=== PATIENT | female | born 1980 | race African-American/Black ===

== ENCOUNTER 2020-08-04 19:45 | Emergency (ER) | payer OTHER, SELFPAY ==
[2020-08-04 20:47] VITALS: BP 126/80; PULSE 80; RESP 16; TEMP 37.4; O2SAT 100; BMI 34.3
--- NOTE | 2020-08-04 21:34 | ED.NECK ---
HPI - Neck Pain/Injury General Chief Complaint: Neck Pain/Injury Stated Complaint: neck and back pain Time Seen by Provider: 08/04/20 21:34 Source: patient Mode of arrival: ambulatory Limitations: no limitations History of Present Illness MD complaint: neck pain and upper back pain Onset (ago): day(s) (2) Place: home Radiation: upper back (left back and left neck along muscle band) Severity: moderate Quality: aching Duration: constant Relieving factors: none Exacerbating factors: movement of extremity and movement of neck Associated symptoms: none Treatments prior to arrival: other (had leftover lidocaine patch) Related Data Previous Rx's Medication Instructions Recorded diazepam [Valium] 5 mg PO TID PRN #10 tab 08/04/20 Allergies Allergy/AdvReac Type Severity Reaction Status Date / Time metoclopramide [From REGLAN] Allergy Severe ALL OVER Unverified 06/25/20 17:28 BODY SWELLING tramadol [TRAMADOL] Allergy Mild PALPATATION Unverified 06/25/20 17:28 S ibuprofen [IBUPROFEN] Allergy Unknown VOMITING/ABD Unverified 06/25/20 17:28 PAIN prochlorperazine Allergy Unknown ? Unverified 06/25/20 17:28 [From COMPAZINE] TACHYCARDIA PT IS UNSURE Review of Systems Review of Systems: Constitutional : No Weight loss, No Fever, No Chills, ENT/Mouth : No Hearing loss, No Ear Pain, No Nasal Congestion, No Sinus Pain, No Hoarseness, No sore throat, No Rhinorrhea, No Swallowing Difficulty Cardiovascular : No Chest Pain, No SOB Respiratory : No Cough, No Dyspnea Gastrointestinal : No Nausea, No Vomiting, No Diarrhea, No abdominal Pain, No Hematochezia, No Melena Genitourinary : No Dysuria, No Urinary Frequency, No Hematuria, No Urinary Incontinence, Musculoskeletal : positive back pain Skin : No Skin Lesions, No rash Neuro : No Weakness, No Numbness, No Paresthesias, no loss of bowel or bladder incontinence, no saddle anesthesia PMFSH Past Medical History Medical History Seizures Surgical History Tubal ligation status Social History Social History (Updated 08/04/20 @ 21:38 by Aniya Cardale, DO) Alcohol intake: never Use of substances other than those prescribed or required for medical reasons: No Advance Directives: No Advance Directives Information Provided: Yes Physical Exam Vital Signs: Vital Signs: Vital Signs Temp Pulse Resp BP Pulse Ox 08/04/20 20:47 99.3 F 80 16 126/80 100 Body Mass Index 34.3 Appearance: Alert. Oriented X3. No acute distress. Eyes: Pupils equal, round and reactive to light. ENT: Pharynx normal. Neck: Normal inspection. Neck supple. CVS: Normal heart rate and rhythm. Pulses normal. Respiratory: No respiratory distress. Breath sounds normal. Abdomen: Soft and nontender. Back: ttp along L paraspinal band from lower thoracic to cervical no rash Skin: Skin warm and dry. Normal skin color. Normal skin turgor. Extremities: No lower extremity edema. No calf ttp Neuro: Oriented X 3. No motor deficit. No sensory deficit. MDM - Neck Pain/Injury MDM Narrative Medical decision making narrative: 39 yo female here with L sided back pain up and down from thoracic to cervical no b/b incontinence, no saddle anesthesia, no IVDA, no AC therapy, not toxic, seems MSK in nature, dispo per results and findings, order of valium for MSK relaxation Lab Data Labs: Lab Results 08/04/20 Range/Units 21:44 Urine Color YELLOW Urine Appearance CLEAR Urine pH 7.5 (5.0-8.0) Ur Specific [place] >= 1.030 H (1.005-1.025) Urine Protein NEG (NEG-TRACE) MG/DL Urine Glucose (UA) NEG (NEG) MG/DL Urine Ketones NEG (NEG) MG/DL Urine Blood NEG (NEG) Urine Nitrite NEG (NEG) Ur Leukocyte Esterase NEG (NEG) Urine RBC 1-4 (0) /HPF Urine WBC 1-4 (0-4) /HPF Ur Squamous Epith Cells 2+ /LPF Urine Bacteria 1+ /LPF Discharge Plan Discharge Clinical Impression: Strain of neck muscle Qualifiers: Encounter type: initial encounter Qualified Code(s): S16.1XXA - Strain of muscle, fascia and tendon at neck level, initial encounter Patient Disposition: Home, Self-Care Instructions: Muscle Strain (ED) Prescriptions: New diazepam [Valium] 5 mg tablet 5 mg PO TID PRN (Reason: muscle spasm) Qty: 10 RF: 0 Referrals: Rosita Vizcarra MD [Primary Care Provider] - 2 days (follow up with your doctor if note better in 2 days)
[2020-08-04 22:05] LABS: Glucose Urine UA NEG (NEG); Leukocyte Esterase Urine NEG (NEG); Nitrite Urine NEG (NEG); PH 7.5 (5.0-8.0); Specific Gravity - Urine >= 1.030 (1.005-1.025); Urine Blood NEG (NEG); Urine Ketones NEG (NEG); Urine Protein NEG (NEG-TRACE)
[2020-08-04 22:10] LABS: Bacteria Urine 1+ /LPF; Squamous Epithelial Cell Urine 2+ /LPF
[2020-08-04 22:11] LABS: Appearance Urine CLEAR; Color Urine YELLOW
[2020-08-04] MEDS: diazePAM 5 MG TABLET PO (22:36)
== END 2020-08-04 22:41 | disposition home or self-care (01) ==
PROVIDERS: Emergency Provider Emergency Medicine; PCP Internal Medicine
DX: S16.1XXA Strain of muscle, fascia and tendon at neck level, initial encounter (principal); M54.5 Low back pain; M54.2 Cervicalgia; X58.XXXA Exposure to other specified factors, initial encounter; Y93.9 Activity, unspecified; Y92.9 Unspecified place or not applicable; Y99.9 Unspecified external cause status; Z79.899 Other long term (current) drug therapy
CPT/HCPCS: 81001; 81003; 81015; 99283

== ENCOUNTER 2020-08-25 12:53 | Emergency (ER) | payer OTHER, SELFPAY ==
[2020-08-25 13:31] VITALS: BP 124/58; PULSE 73; RESP 16; TEMP 36.1; O2SAT 100; BMI 36.5
--- NOTE | 2020-08-25 14:06 | ED_ITS ---
HPI - Back Pain/Injury General Chief Complaint: Back Pain/Injury <MIGNON Bernstein Last Filed: 08/26/20 12:50> Stated Complaint: NECK AND LOWER PAIN <MIGNON Bernstein Last Filed: 08/26/20 12:50> Time Seen by Provider: 08/25/20 14:06 <MIGNON Bernstein Last Filed: 08/26/20 12:50> History of Present Illness HPI Narrative: Patient complains of both upper and lower back pain for 3 weeks, there is no numbness weakness or paresthesias, there is no changes to bowel or bladder there is no burning with urination, pain is worse with movement, pain has gotten worse over past few days with no new injury, it is moderate with movement but there is no pain when she is in a comfortable position, no chest pain no abdominal pain no fever <MIGNON Bernstein Last Filed: 08/26/20 12:50> Related Data Home Medications: Previous Rx's Medication Instructions Recorded diazepam [Valium] 5 mg PO TID PRN #10 tab 08/04/20 cyclobenzaprine 5 mg PO TID PRN #14 tab 08/25/20 oxycodone-acetaminophen [Percocet] 1 tab PO Q6H PRN #10 tab 08/25/20 <MIGNON Bernstein Last Filed: 08/26/20 12:50> Allergies/Adverse Reactions: Allergies Allergy/AdvReac Type Severity Reaction Status Date / Time metoclopramide [From REGLAN] Allergy Severe ALL OVER Verified 08/04/20 22:31 BODY SWELLING tramadol [TRAMADOL] Allergy Mild PALPATATION Verified 08/04/20 22:31 S ibuprofen [IBUPROFEN] Allergy Unknown VOMITING/ABD Verified 08/04/20 22:31 PAIN prochlorperazine Allergy Unknown ? Verified 08/04/20 22:31 [From COMPAZINE] TACHYCARDIA PT IS UNSURE <MIGNON Bernstein Last Filed: 08/26/20 12:50> Review of Systems Review of Systems: No headache no neck pain no fever no chills no weakness no chest pain or shortness of breath no abdominal pain no dysuria no changes to bowel or bladder no weakness no numbness no incontinence <MIGNON Bernstein Last Filed: 08/26/20 12:50> Yes all other systems are reviewed and are negative <MIGNON Bernstein - Last Filed: 08/26/20 12:50> [facility] Past Medical History Source: nursing notes reviewed <MIGNON Bernstein - Last Filed: 08/26/20 12:50> Medical History: Medical History Seizures <MIGNON Bernstein - Last Filed: 08/26/20 12:50> Surgical History: Surgical History Tubal ligation status <MIGNON Bernstein - Last Filed: 08/26/20 12:50> Social History Social History: Social History (Updated 08/04/20 @ 21:38 by Aniya Barr DO) Alcohol intake: never Smoking Status: Current some day smoker Advance Directives: No Advance Directives Information Provided: No <MIGNON Bernstein - Last Filed: 08/26/20 12:50> Physical Exam Vital Signs: Vital Signs: Last Vital Signs Temp 97.0 F 08/25/20 13:31 Pulse 73 08/25/20 13:31 Resp 16 08/25/20 13:31 BP 124/58 L 08/25/20 13:31 Pulse Ox 100 08/25/20 13:31 Body Mass Index 36.5 <MIGNON Bernstein - Last Filed: 08/26/20 12:50> Vital Signs: Last Vital Signs Temp 97.0 F 08/25/20 13:31 Pulse 73 08/25/20 13:31 Resp 16 08/25/20 13:31 BP 124/58 L 08/25/20 13:31 Pulse Ox 100 08/25/20 13:31 Body Mass Index 36.5 <Xander Asif MD - Last Filed: 08/26/20 13:16> Patient is A&O x3 with no acute distress, cooperative The head is normocephalic The neck is supple and nontender The chest is clear to auscultation bilaterally, no chest wall tenderness The abdomen is soft and nontender The back has bilateral lower lumbar paraspinal tenderness, pain is easily reproduced with movement, the skin is intact no redness warmth or rash, there is no focal bony tenderness and there is no CVA tenderness Extremities is full range of motion x4 Neuro the gait is normal there is no focal motor or sensory deficits <MIGNON Bernstein - Last Filed: 08/26/20 12:50> Course Course Course Narrative: I have reviewed the chart <Xander Asif MD - Last Filed: 08/26/20 13:16> Discharge Plan Discharge Clinical Impression: Back pain <MIGNON Bernstein - Last Filed: 08/26/20 12:50> Patient Disposition: Home, Self-Care <MIGNON Bernstein - Last Filed: 08/26/20 12:50> Additional Instructions: Follow as directed by primary doctor with physical therapist chiropractor will be very helpful <MIGNON Bernstein - Last Filed: 08/26/20 12:50> Prescriptions: New oxycodone-acetaminophen [Percocet] 5-325 mg tablet 1 tab PO Q6H PRN (Reason: pain) Qty: 10 RF: 0 cyclobenzaprine 5 mg tablet 5 mg PO TID PRN (Reason: muscle spasm) Qty: 14 RF: 0 No Action diazepam [Valium] 5 mg tablet 5 mg PO TID PRN (Reason: muscle spasm) Qty: 10 RF: 0 <IMGNON Bernstein - Last Filed: 08/26/20 12:50> Interventions: ED Discharge Assessment Last Done: 08/25/20 14:25 <MIGNON Bernstein - Last Filed: 08/26/20 12:50> Discharge Date/Time: 08/25/20 14:27 <MIGNON Bernstein - Last Filed: 08/26/20 12:50>
== END 2020-08-25 14:27 | disposition home or self-care (01) ==
PROVIDERS: Emergency Provider Emergency Medicine; PCP Internal Medicine
DX: M54.5 Low back pain (principal); Z79.899 Other long term (current) drug therapy; F17.200 Nicotine dependence, unspecified, uncomplicated; Z71.6 Tobacco abuse counseling
CPT/HCPCS: 99283

== ENCOUNTER 2020-09-24 17:31 | Emergency (ER) | payer OTHER, SELFPAY ==
--- NOTE | 2020-09-24 17:35 | ED.URI ---
HPI - URI/Sore Throat General Chief Complaint: General Medical Stated Complaint: Flu like Symptoms Time Seen by Provider: 09/24/20 17:35 Source: patient Mode of arrival: ambulatory Limitations: no limitations History of Present Illness MD elicited complaint: sore throat and other (headache and body aches) Onset (ago): day(s) (2) Consistency: constant Severity: moderate Description of mucous: clear Able to tolerate fluids by mouth: Yes Exacerbating factors: swallowing Relieving factors: nothing Associated symptoms: headache and sore throat Treatments prior to arrival: none Related Data Previous Rx's Medication Instructions Recorded diazepam [Valium] 5 mg PO TID PRN #10 tab 08/04/20 cyclobenzaprine 5 mg PO TID PRN #14 tab 08/25/20 oxycodone-acetaminophen [Percocet] 1 tab PO Q6H PRN #10 tab 08/25/20 amoxicillin 500 mg PO TID 7 Days #21 cap 09/24/20 Allergies Allergy/AdvReac Type Severity Reaction Status Date / Time metoclopramide [From REGLAN] Allergy Severe ALL OVER Verified 08/04/20 22:31 BODY SWELLING tramadol [TRAMADOL] Allergy Mild PALPATATION Verified 08/04/20 22:31 S ibuprofen [IBUPROFEN] Allergy Unknown VOMITING/ABD Verified 08/04/20 22:31 PAIN prochlorperazine Allergy Unknown ? Verified 08/04/20 22:31 [From COMPAZINE] TACHYCARDIA PT IS UNSURE Review of Systems Review of Systems: Constitutional : noFever, no Chills, positive fatigue, positive Malaise ENT/Mouth : positive sore throat, no runny nose Eyes: No Discharge Cardiovascular : No Chest Pain, No SOB Respiratory : No Cough, No Sputum Gastrointestinal : No Nausea, No Vomiting, No Diarrhea Genitourinary : No Dysuria, No Urinary Frequency Musculoskeletal : positive Myalgia Skin : No rash Neuro : pos Headache PMFSH Past Medical History Attestation statement: The following information was validated with the patient. Medical History Seizures Surgical History Tubal ligation status Social History Social History Alcohol intake: never Smoking Status: Current some day smoker Advance Directives: No Advance Directives Information Provided: No Physical Exam Vital Signs: Vital Signs: Last Vital Signs Temp 98.9 F 09/24/20 17:47 Pulse 77 09/24/20 17:47 Resp 18 09/24/20 17:47 BP 149/60 H 09/24/20 17:47 Pulse Ox 97 09/24/20 17:47 Body Mass Index 31.7 Appearance: Alert. Oriented X3. No acute distress. Eyes: Pupils equal, round and reactive to light. ENT: Pharynx bilateral erythema with white patches, mild swelling, uvula midline no suggestion of [employer] Neck: Normal inspection. Neck supple. CVS: Normal heart rate and rhythm. Pulses normal. Respiratory: No respiratory distress. Breath sounds normal. Abdomen: Soft and non-tender. Skin: Skin warm and dry. Normal skin color. Normal skin turgor. Extremities: No lower extremity edema. No calf ttp Neuro: Oriented X 3. No motor deficit. No sensory deficit. MDM - URI/Sore Throat MDM Narrative Medical decision making narrative: 39 yo female stable VS, not toxic, COVID vs strep pharyngitis has some exudates and swelling but uvula midline and no concern for deeper space infection, will start on amoxicllin and swab for COVID Discharge Plan Discharge Clinical Impression: Viral infection, Pharyngitis due to Streptococcus pyogenes Patient Disposition: Home, Self-Care Instructions: Pharyngitis (ED), Viral Syndrome (ED) Additional Instructions: return to ED for any worsening symptoms or concerns you were tested for COVID we will call you with results in 2 to 4 days, wear a mask, socially distance Prescriptions: New amoxicillin 500 mg capsule 500 mg PO TID 7 Days Qty: 21 RF: 0 No Action diazepam [Valium] 5 mg tablet 5 mg PO TID PRN (Reason: muscle spasm) Qty: 10 RF: 0 oxycodone-acetaminophen [Percocet] 5-325 mg tablet 1 tab PO Q6H PRN (Reason: pain) Qty: 10 RF: 0 cyclobenzaprine 5 mg tablet 5 mg PO TID PRN (Reason: muscle spasm) Qty: 14 RF: 0 Referrals: Physician,Unknown [Primary Care Provider] - 2 days (PCP if not better)
[2020-09-24 17:46] VITALS: BP 112/78; PULSE 80; RESP 18; TEMP 37.1; O2SAT 98; BMI 31.7
[2020-09-24 17:47] VITALS: BP 149/60; PULSE 77; RESP 18; TEMP 37.2; O2SAT 97
== END 2020-09-24 18:06 | disposition home or self-care (01) ==
PROVIDERS: Emergency Provider Emergency Medicine
DX: B34.9 Viral infection, unspecified (principal); J02.0 Streptococcal pharyngitis; M79.10 Myalgia, unspecified site; R51.9 Headache, unspecified; Z79.899 Other long term (current) drug therapy; Z20.828 Contact with and (suspected) exposure to other viral communicable diseases
CPT/HCPCS: 99283; U0003

== ENCOUNTER 2021-01-21 15:21 | Emergency (ER) | payer OTHER, SELFPAY ==
[2021-01-21 15:54] VITALS: BP 100/62; PULSE 79; RESP 16; TEMP 36.9; O2SAT 95; BMI 31.6
[2021-01-21 17:43] LABS: COVID-19 Test Negative (Negative)
--- NOTE | 2021-01-21 18:53 | ED_ITS ---
HPI - URI/Sore Throat General Chief Complaint: Upper Respiratory Symptoms Stated Complaint: sore throat, fever Time Seen by Provider: 01/21/21 17:58 Source: patient Mode of arrival: ambulatory Limitations: no limitations History of Present Illness HPI Narrative: Patient presents to ED for sore throat,headache, chills and nasal congestion for past 2 days. He denies any chest pain, coughing, or shortness of breath. Patient states feeling warm but did not have any measured fever Related Data Previous Rx's Medication Instructions Recorded diazepam [Valium] 5 mg PO TID PRN #10 tab 08/04/20 cyclobenzaprine 5 mg PO TID PRN #14 tab 08/25/20 oxycodone-acetaminophen [Percocet] 1 tab PO Q6H PRN #10 tab 08/25/20 amoxicillin 500 mg PO TID 7 Days #21 cap 09/24/20 Allergies Allergy/AdvReac Type Severity Reaction Status Date / Time metoclopramide [From REGLAN] Allergy Severe ALL OVER Verified 01/21/21 15:54 BODY SWELLING tramadol [TRAMADOL] Allergy Mild PALPATATION Verified 01/21/21 15:54 S ibuprofen [IBUPROFEN] Allergy Unknown VOMITING/ABD Verified 01/21/21 15:54 PAIN prochlorperazine Allergy Unknown ? Verified 01/21/21 15:54 [From COMPAZINE] TACHYCARDIA PT IS UNSURE Review of Systems Review of Systems: Yes all other systems are reviewed and are negative Constitutional: Constitutional: Reports as per HPI, Reports no additional constitutional complaints, Reports chills and Reports headache(s) Eyes: Eyes: Reports as per HPI and Reports no additional eye complaints ENT: Reports system reviewed and no additional complaints, except as documented, Reports as per HPI, Reports headache(s), Reports nasal congestion and Reports sore throat Cardiovascular: Cardiovascular: Reports as per HPI and Reports no additional cardiovascular complaints Respiratory: Respiratory: Reports as per HPI and Reports no additional respiratory complaints Gastrointestinal: Gastrointestinal: Reports as per HPI and Reports no additional gastrointestinal complaints Genitourinary: Genitourinary: Reports no additional female genitourinary complaints and Reports as per HPI Musculoskeletal: Musculoskeletal: Reports no additional musculoskeletal complaints and Reports as per HPI Neurologic: Reports system reviewed and no additional complaints, except as documented, Reports as per HPI and Reports headache(s) Psychiatric: Psychiatric: Reports no additional psychiatric complaints and Reports as per HPI PMFSH Past Medical History Medical History Seizures Surgical History Tubal ligation status Social History Social History Alcohol intake: never Smoking Status: Current some day smoker Advance Directives: No Advance Directives Information Provided: Yes Physical Exam Vital Signs: Vital Signs: Last Vital Signs Temp 98.4 F 01/21/21 15:54 Pulse 79 01/21/21 15:54 Resp 16 01/21/21 15:54 BP 100/62 01/21/21 15:54 Pulse Ox 95 01/21/21 15:54 Body Mass Index 31.6 Const: General: cooperative, healthy appearing, comfortable, no acute distress, well developed, alert, awake and Physically active Orientation/consciousness: patient oriented x3 HENMT: Head: Yes normal to inspection, Yes No palpable skull fracture present, Yes normocephalic, Yes atraumatic, No abrasion, No Flores's sign, No contusion, No cranial bruits, No hematoma, No laceration, No occipital foramen tenderness, No palpable skull fracture, No raccoon eyes, No scalp lesion, No scalp tenderness, No Temporal artery tenderness present and No periorbital ecchymosis General nose exam: Normal external nose present and Normal nares present Throat: Yes posterior oropharynx normal, Yes tonsils normal and Yes uvula midline Neck: Neck: Yes normal visual inspection, Yes full ROM, Yes no lymphadenopathy, Yes no meningeal signs, Yes trachea midline, Yes supple and No tender Chest: Chest palpation & inspection: normal inspection of the chest and normal palpation of entire chest wall Resp: Effort & Inspection: normal respiratory effort and able to speak in co mplete sentences Cardio: Jugular venous distension: no JVD Heart sounds: S1 normal heart sound present and S2 normal heart sound present GI: Inspection: Yes normal to inspection and No abdominal wall ecchymosis Palpation (GI): Soft to palpation, not firm, nontender, no guarding and not rigid : General: No CVA tenderness and Yes no CVA tenderness Back/Spine/Pelvis: Back: no CVA tenderness, No CVA tenderness and No back tenderness Skin: General skin exam: no rashes or lesions noted and elasticity normal Neuro: General: patient oriented x3, no meningeal signs and CN's II-XI intact bilaterally Cranial nerves: Yes CN's II-XII intact bilaterally Extrem: General: Yes normal to inspection and Yes full ROM Psych: Appearance: grossly normal, well kempt and not disheveled Course Course Course Narrative: History physical is viral pharyngitis viral syndrome. Reevaluation(s) Reevaluation #1: Initial COVID swab negative. Patient informed although her covid test is negative because she have symptoms only for 2 days she might have a low viral might have a false negative. Patient informed if symptoms worsen recommend quarantine in or repeat COVID test and 72 hours. MDM - URI/Sore Throat MDM Narrative Medical decision making narrative: Viral syndrome Lab Data Labs: Lab Results 01/21/21 Range/Units 17:12 COVID-19 ([facility]) Negative (Negative) COVID-19 Clin Com See Note Discharge Plan Discharge Clinical Impression: Acute viral syndrome Patient Disposition: Home, Self-Care Instructions: Pharyngitis (ED), Viral Syndrome (ED) Additional Instructions: Return to the ED immediately for any chest pain, shortness of breath, coughing, fever, chills, weakness, dizziness, severe sore throat, drooling, inability to tolerate solid food/liquid, or any other concerning symptoms. Recommend repeat testing in 72 hours his symptoms worsen or just quarantine. Prescriptions: No Action diazepam [Valium] 5 mg tablet 5 mg PO TID PRN (Reason: muscle spasm) Qty: 10 RF: 0 oxycodone-acetaminophen [Percocet] 5-325 mg tablet 1 tab PO Q6H PRN (Reason: pain) Qty: 10 RF: 0 cyclobenzaprine 5 mg tablet 5 mg PO TID PRN (Reason: muscle spasm) Qty: 14 RF: 0 amoxicillin 500 mg capsule 500 mg PO TID 7 Days Qty: 21 RF: 0 Interventions: ED Discharge Assessment Last Done: 01/21/21 19:14 Discharge Date/Time: 01/21/21 19:14 Print Language: Indian
== END 2021-01-21 19:14 | disposition home or self-care (01) ==
PROVIDERS: Emergency Provider Internal Medicine; PCP Internal Medicine
DX: B34.9 Viral infection, unspecified (principal); Z20.822 Contact with and (suspected) exposure to COVID-19; R50.9 Fever, unspecified; J02.9 Acute pharyngitis, unspecified
CPT/HCPCS: 36415; 87635; 99283

== ENCOUNTER 2021-03-03 22:38 | Emergency (ER) | payer OTHER, SELFPAY ==
--- NOTE | ~2021-03-03 | XR_ITS ---
EXAMINATION: XR LUMBOSACRAL SPINE CLINICAL INFORMATION: Lower back pain. COMPARISON: None TECHNIQUE: Three views of the lumbosacral spine. FINDINGS: The vertebral bodies and posterior elements are normal. The disc spaces are preserved and the vertebral alignment is normal. The sacroiliac joints are symmetric. The visualized sacrum appears intact. The bowel gas pattern is unremarkable. The paraspinal soft tissues are normal. XR/XR lumbar spine 2-3V IMPRESSION: Unremarkable lumbar spine radiographs.
[2021-03-03 22:56] VITALS: BP 113/69; PULSE 75; RESP 16; TEMP 36.1; O2SAT 99; BMI 30.9
[2021-03-04 00:23] LABS: MANUAL DIFF FLAG NO
[2021-03-04 00:25] LABS: Basophils Absolute Auto 0.1 X10*3/uL (0.0-0.2); Eosinophils Absolute Auto 0.1 X10*3/uL (0.0-0.4); Eosinophils Percent Auto 1.6 % (0-4); Hematocrit 40.8 % (37-47); Imm Gran Abs Auto 0.02 X10*3/uL (0.00-0.03); Imm Gran Pct Auto 0.3 % (0.0-0.4); Lymphocytes Absolute Auto 3.3 X10*3/uL (1.2-4.9); Lymphocytes Percent Auto 48.7 % (20-40); Mean Corpuscular HGB Conc 31.9 g/dl (31.0-35.0); Mean Corpuscular Hemoglobin 26.3 pg (27.0-33.0); Mean Corpuscular Volume 82.6 fL (80-98); Mean Platelet Volume 9.9 fL (9.4-12.3); Monocytes Absolute Auto 0.4 X10*3/uL (0.1-1.2); Monocytes Percent Auto 6.3 % (2-11); Neutrophils Absolute Auto 2.9 X10*3/uL (2.0-8.3); Neutrophils Percent Auto 42.1 % (45-73); Platelet Count 305 X10*3/uL (160-400); Red Blood Count 4.94 X10*6/uL (4.20-5.50); Red Cell Distribution Width 14.3 % (11.0-16.0); White Blood Count 6.9 X10*3/uL (4.8-10.8)
[2021-03-04] MEDS: Cyclobenzaprine HCl 10 MG TABLET PO (00:26)
[2021-03-04] MEDS: predniSONE 20 MG TABLET 60 MG PO (00:26)
--- NOTE | 2021-03-04 01:50 | ED_ITS ---
HPI - General Adult General Chief complaint: Back Pain/Injury Stated complaint: back pain/ tingling in legs Time Seen by Provider: 03/04/21 00:07 Source: patient Mode of arrival: ambulatory Limitations: no limitations History of Present Illness HPI narrative: Patient presents to the ED chronic neck/back pain due to fibromyalgia for 3 days. patient states what is new is tingling senstion from bilateral knees to feet. Patient deneis any recent trauma, slurred speech, leg swelling, chest pin, shorntess of breath, loss of vision, paralsys of extemities, or calf pain. Related Data Previous Rx's Medication Instructions Recorded diazepam [Valium] 5 mg PO TID PRN #10 tab 08/04/20 cyclobenzaprine 5 mg PO TID PRN #14 tab 08/25/20 oxycodone-acetaminophen [Percocet] 1 tab PO Q6H PRN #10 tab 08/25/20 amoxicillin 500 mg PO TID 7 Days #21 cap 09/24/20 cyclobenzaprine 10 mg PO TID PRN #18 tab 03/04/21 prednisone 40 mg PO DAILY #10 tab 03/04/21 Allergies Allergy/AdvReac Type Severity Reaction Status Date / Time metoclopramide [From REGLAN] Allergy Severe ALL OVER Verified 03/03/21 23:03 BODY SWELLING tramadol [TRAMADOL] Allergy Mild PALPATATION Verified 03/03/21 23:03 S ibuprofen [IBUPROFEN] Allergy Unknown VOMITING/ABD Verified 03/03/21 23:03 PAIN prochlorperazine Allergy Unknown ? Verified 03/03/21 23:03 [From COMPAZINE] TACHYCARDIA PT IS UNSURE Review of Systems Review of Systems: Yes all other systems are reviewed and are negative Constitutional: Constitutional: Reports as per HPI and Reports no additional constitutional complaints Eyes: Eyes: Reports as per HPI and Reports no additional eye complaints ENT: Reports system reviewed and no additional complaints, except as documented, Reports as per HPI and Reports neck pain (chronic) Cardiovascular: Cardiovascular: Reports as per HPI and Reports no additional cardiovascular complaints Respiratory: Respiratory: Reports as per HPI and Reports no additional respiratory complaints Gastrointestinal: Gastrointestinal: Reports as per HPI and Reports no additional gastrointestinal complaints Genitourinary: Genitourinary: Reports no additional female genitourinary complaints and Reports as per HPI Musculoskeletal: Musculoskeletal: Reports no additional musculoskeletal complaints, Reports as per HPI, Reports back pain and Reports neck pain (chronic) Neurologic: Reports system reviewed and no additional complaints, except as documented and Reports as per HPI Comments: tingling from knees down Psychiatric: Psychiatric: Reports no additional psychiatric complaints and Reports as per HPI FORMERLY [facility] Past Medical History Medical History (Updated 03/04/21 @ 02:04 by MIGNON Crian) Fibromyalgia Sciatica Seizures Surgical History Tubal ligation status Social History Social History Alcohol intake: never Advance Directives: No Advance Directives Information Provided: No Patient : No Physical Exam Vital Signs: Vital Signs: Last Vital Signs Temp 97.0 F 03/03/21 22:56 Pulse 75 03/03/21 22:56 Resp 16 03/03/21 22:56 BP 113/69 03/03/21 22:56 Pulse Ox 99 03/03/21 22:56 Body Mass Index 30.9 Const: General: cooperative, healthy appearing, comfortable, no acute distress, well developed, alert, awake and Physically active Orientation/ consciousness: patient oriented x3 HENMT: Head: Yes normal to inspection, Yes No palpable skull fracture present, Yes normocephalic and Yes atraumatic Eyes: General: appearance normal, both eyes and all related structures Neck: Neck: Yes normal visual inspection, Yes full ROM, Yes no lymphadenopathy, Yes no meningeal signs, Yes trachea midline, Yes supple and No tender Chest: Chest palpation & inspection: normal inspection of the chest and normal palpation of entire chest wall Resp: Effort & Inspection: normal respiratory effort and able to speak in complete sentences Cardio: Jugular venous distension: no JVD Heart sounds: S1 normal heart sound present and S2 normal heart sound present GI: Inspection: Yes normal to inspection and No abdominal wall ecchymosis Palpation (GI): Soft to palpation, not firm, nontender, no guarding and not rigid : General: No CVA tenderness and Yes no CVA tenderness Back/Spine/Pelvis: Back: no CVA tenderness, No CVA tenderness and back tenderness (lumbar) Skin: General skin exam: no rashes or lesions noted and elasticity normal Neuro: Other: Negative pronator drift. Negative slurred speech. Negative facial droop. Normal gait. All extremities equal strength 5+. [id number] test intact. Negative Romberg General: patient oriented x3, gait normal, no me ningeal signs and CN's II-XI intact bilaterally Cranial nerves: Yes CN's II- XII intact bilaterally Extrem: Other: Negative for swelling, pitting edema, redness, or calf tenderness General: Yes normal to inspection and Yes full ROM Psych: Appearance: grossly normal, well kempt and not disheveled Course Course Course Narrative: No indication for head CT. No neuro deficit. Patient stating only have tingling in both legs from knee to foot only will do CPK admission does no rhabdo and check electrolytes. Was sent for lumbar x-ray. Reevaluation(s) Reevaluation #1: Patient given prednisone and Flexeril. Waiting for chemistry Medical Decision Making MDM Narrative Medical decision making narrative: Fibromyalgia, paresthesia Lab Data Result diagrams: 03/04/21 00:19 03/04/21 00:18 Labs: Lab Results 03/04/21 03/04/21 Range/Units 00:18 00:19 WBC 6.9 (4.8-10.8) X10*3/uL RBC 4.94 (4.20-5.50) X10*6/uL Hgb 13.0 (12.0-16.0) g/dl Hct 40.8 (37-47) % MCV 82.6 (80-98) fL MCH 26.3 L (27.0-33.0) pg MCHC 31.9 (31.0-35.0) g/dl RDW 14.3 (11.0-16.0) % Plt Count 305 (160-400) X10*3/uL MPV 9.9 (9.4-12.3) fL Immature Gran % (Auto) 0.3 (0.0-0.4) % Neut % (Auto) 42.1 L (45-73) % Lymph % (Auto) 48.7 H (20-40) % [place] % (Auto) 6.3 (2-11) % Eos % (Auto) 1.6 (0-4) % Baso % (Auto) 1.0 (0-2) % Lymph # (Auto) 3.3 (1.2-4.9) X10*3/uL [place] # (Auto) 0.4 (0.1-1.2) X10*3/uL Eos # (Auto) 0.1 (0.0-0.4) X10*3/uL Baso # (Auto) 0.1 (0.0-0.2) X10*3/uL Abs Immat Gran (auto) 0.02 (0.00-0.03) X10*3/uL Absolute Neuts (auto) 2.9 (2.0-8.3) X10*3/uL Absolute Nucleated RBC 0.000 (0.0-0.012) X10*3/uL Nucleated RBC % (auto) 0.0 (0.0-0.2) /100WBC Sodium 141 (135-145) mmol/L Potassium 3.9 (3.3-5.1) mmol/L Chloride 107 (96-108) mmol/L Carbon Dioxide 26 (22-29) mmol/L Anion Gap 12 (12-20) BUN 10 (9-16) mg/dL Creatinine 0.85 (0.5-1.4) mg/dL Estim Creat Clear Calc 92.7 Estimated GFR > 60 Random Glucose 86 (60-115) mg/dL Calcium 8.7 (8.4-10.2) mg/dL Magnesium 1.9 (1.6-2.6) mg/dL Total Bilirubin 0.2 (0.0-1.0) mg/dL AST 15 (5-31) U/L ALT 26 (0-31) U/L Alkaline Phosphatase 78 (39-117) U/L Total Creatine Kinase 222 H (26-140) U/L Total Protein 6.8 (6.5-8.0) g/dL Albumin 3.8 (3.5-5.0) g/dL Discharge Plan Discharge Clinical Impression: Fibromyalgia, Paresthesia Patient Disposition: Home, Self-Care Instructions: Fibromyalgia (ED), Sciatica (ED), Paresthesia (ED) Additional Instructions: Return to ED for worsening back pain, abdominal pain, nausea, vomiting, fever chills, headache, neck stiffness, paralysis of extremities, urinary/bowel incontinence, or any other concerning symptoms. you're labs came back normal. X-ray was normal. Prescriptions: New prednisone 20 mg tablet 40 mg PO DAILY Qty: 10 RF: 0 cyclobenzaprine 10 mg tablet 10 mg PO TID PRN (Reason: pain) Qty: 18 RF: 0 No Action diazepam [Valium] 5 mg tablet 5 mg PO TID PRN (Reason: muscle spasm) Qty: 10 RF: 0 oxycodone-acetaminophen [Percocet] 5-325 mg tablet 1 tab PO Q6H PRN (Reason: pain) Qty: 10 RF: 0 cyclobenzaprine 5 mg tablet 5 mg PO TID PRN (Reason: muscle spasm) Qty: 14 RF: 0 amoxicillin 500 mg capsule 500 mg PO TID 7 Days Qty: 21 RF: 0
[2021-03-04 01:57] LABS: Alanine Aminotransferase 26 U/L (0-31); Albumin Level 3.8 g/dL (3.5-5.0); Alkaline Phosphatase 78 U/L (39-117); Anion Gap 12 (12-20); Aspartate Amino Transferase 15 U/L (5-31); Bilirubin Total 0.2 mg/dL (0.0-1.0); Blood Urea Nitrogen 10 mg/dL (9-16); Calcium 8.7 mg/dL (8.4-10.2); Carbon Dioxide 26 mmol/L (22-29); Chloride 107 mmol/L (96-108); Creatinine Clr Calc Pharmacy 92.7; Estimated Glomerular Filt Rate > 60; Glucose Random 86 mg/dL (60-115); Magnesium 1.9 mg/dL (1.6-2.6); Potassium 3.9 mmol/L (3.3-5.1); Sodium 141 mmol/L (135-145); Total Protein 6.8 g/dL (6.5-8.0)
[2021-03-04 02:36] VITALS: BP 118/70; PULSE 76; RESP 16; O2SAT 98
== END 2021-03-04 02:39 | disposition home or self-care (01) ==
PROVIDERS: Physician Assistant; Emergency Provider Internal Medicine; PCP Internal Medicine
DX: M79.7 Fibromyalgia (principal); R20.2 Paresthesia of skin; M54.2 Cervicalgia; M54.5 Low back pain; Z79.899 Other long term (current) drug therapy
CPT/HCPCS: 36415; 72100; 80053; 82550; 83735; 85025; 99284

== ENCOUNTER 2022-03-09 18:17 | Emergency (ER) | payer OTHER, SELFPAY ==
[2022-03-09 18:22] VITALS: BP 117/84; PULSE 79; RESP 18; TEMP 37; O2SAT 99; BMI 32.3
--- NOTE | 2022-03-09 18:26 | ECG_ITS ---
Test Reason : NEURO Blood Pressure : / mmHG Vent. Rate : 073 BPM Atrial Rate : 073 BPM P-R Int : 140 ms QRS Dur : 090 ms QT Int : 412 ms P-R-T Axes : 050 029 012 degrees QTc Int : 453 ms Normal sinus rhythm Normal ECG No previous ECGs available Referred By: Generic ED Physician Electronically Signed By:WAQAS SCOTT MD
[2022-03-09 18:36] LABS: MANUAL DIFF FLAG NO
[2022-03-09 18:42] LABS: Basophils Absolute Auto 0.1 X10*3/uL (0.0-0.2); Eosinophils Absolute Auto 0.1 X10*3/uL (0.0-0.4); Eosinophils Percent Auto 1.8 % (0-4); Hematocrit 44.1 % (37.0-47.0); Hemoglobin 14.2 g/dl (12.0-16.0); Imm Gran Abs Auto 0.02 X10*3/uL (0.00-0.03); Imm Gran Pct Auto 0.3 % (0.0-0.4); Lymphocytes Absolute Auto 2.4 X10*3/uL (1.2-4.9); Lymphocytes Percent Auto 39.6 % (20-40); Mean Corpuscular HGB Conc 32.2 g/dl (31.0-35.0); Mean Corpuscular Hemoglobin 26.5 pg (27.0-33.0); Mean Corpuscular Volume 82.3 fL (80.0-98.0); Mean Platelet Volume 9.9 fL (9.4-12.3); Monocytes Absolute Auto 0.5 X10*3/uL (0.1-1.2); Monocytes Percent Auto 7.9 % (2-11); Neutrophils Percent Auto 49.4 % (45-73); Platelet Count 318 X10*3/uL (160-400); Red Blood Count 5.36 X10*6/uL (4.20-5.50); White Blood Count 6.1 X10*3/uL (4.8-10.8)
[2022-03-09 18:47] LABS: INTERNATIONAL NORM RATIO 1.1 (0.9-1.1); Prothrombin Time 12.6 SEC (9.9-13.0)
[2022-03-09 18:55] LABS: Alanine Aminotransferase 24 U/L (0-31); Albumin Level 4.1 g/dL (3.5-5.0); Alkaline Phosphatase 92 U/L (39-117); Anion Gap 12 (12-20); Aspartate Amino Transferase 16 U/L (5-31); Bilirubin Total 0.2 mg/dL (0.0-1.0); Blood Urea Nitrogen 16 mg/dL (9-16); Calcium 9.5 mg/dL (8.4-10.2); Carbon Dioxide 24 mmol/L (22-29); Chloride 108 mmol/L (96-108); Estimated Glomerular Filt Rate > 60; Glucose Random 98 mg/dL (60-115); Potassium 4.2 mmol/L (3.3-5.1); Sodium 140 mmol/L (135-145); Total Protein 7.7 g/dL (6.5-8.0)
[2022-03-09 18:56] LABS: Influenza A Negative (Negative); Influenza B2 Negative (Negative)
[2022-03-09 18:56] LABS: COVID-19 Test Negative (Negative); IDNOW Serial# 16C4AD1C
[2022-03-09 19:02] LABS: Troponin-I High Sensitivity < 3.5 ng/L (<3.5-17.0)
--- NOTE | 2022-03-09 19:04 | ED.NEUROSD ---
HPI - Neuro Symptoms/Deficit General Chief Complaint: Neuro Symptoms/Deficit Stated Complaint: migraines/right side of head and shoulder numb Time Seen by Provider: 03/09/22 19:02 Source: patient Limitations: no limitations History of Present Illness HPI Narrative: This is a 41-year-old female with a history of migraine headaches who complains of a right-sided migraine type headache that began about an hour ago. She has associated feeling of tingling and numbness in her right face and right arm not her right leg. She said the headache has been coming and going. She tried acetaminophen without relief. She has had nausea but no vomiting. She denies any photophobia. Her vision seems slightly blurred but she denies any visual scotoma. Patient has allergies or intolerances to Reglan, Compazine, ibuprofen. Patient describes the pain as stabbing in quality Related Data Previous Rx's Medication Instructions Recorded diazepam 5 mg tablet (Valium) 5 mg PO TID PRN #10 tab 08/04/20 cyclobenzaprine 5 mg tablet 5 mg PO TID PRN #14 tab 08/25/20 oxycodone-acetaminophen 5 mg-325 1 tab PO Q6H PRN #10 tab 08/25/20 mg tablet (Percocet) amoxicillin 500 mg capsule 500 mg PO TID 7 Days #21 cap 09/24/20 cyclobenzaprine 10 mg tablet 10 mg PO TID PRN #18 tab 03/04/21 prednisone 20 mg tablet 40 mg PO DAILY #10 tab 03/04/21 sumatriptan succinate 25 mg tablet See Rx Instructions .ROUTE 03/09/22 (Imitrex) .COMPLEX #10 tab Allergies Allergy/AdvReac Type Severity Reaction Status Date / Time metoclopramide [From REGLAN] Allergy Severe ALL OVER Verified 03/03/21 23:03 BODY SWELLING tramadol [TRAMADOL] Allergy Mild PALPATATION Verified 03/03/21 23:03 S ibuprofen [IBUPROFEN] Allergy Unknown VOMITING/ABD Verified 03/03/21 23:03 PAIN prochlorperazine Allergy Unknown ? Verified 03/03/21 23:03 [From COMPAZINE] TACHYCARDIA PT IS UNSURE Review of Systems Review of Systems: Yes all other systems are reviewed and are negative Constitutional: Constitutional: Reports as per HPI, Denies fever(s) and Reports headache(s) Eyes: Eyes: Reports as per HPI and Reports no additional eye complaints ENT: Reports system reviewed and no additional complaints, except as documented, Reports as per HPI, Reports headache(s), Denies nasal congestion, Denies nasal discharge and Denies sore throat Cardiovascular: Cardiovascular: Reports as per HPI, Denies chest pain and Denies dyspnea Respiratory: Respiratory: Reports as per HPI, Denies cough and Denies dyspnea Gastrointestinal: Gastrointestinal: Reports as per HPI, Denies abdominal pain, Denies diarrhea and Denies vomiting Genitourinary: Genitourinary: Reports as per HPI, Denies hematuria, Denies urinary frequency and Denies dysuria Musculoskeletal: Musculoskeletal: Reports no additional musculoskeletal complaints and Reports numbness (Right face and right arm) Integumentary/Breasts: Skin/Breast: Reports as per HPI and Denies rash Neurologic: Reports as per HPI, Reports headache(s), Denies focal weakness and Reports numbness (Right face and right arm) Psychiatric: Psychiatric: Reports no additional psychiatric complaints and Reports as per HPI Endocrine: Endocrine: Reports no additional endocrine complaints and Reports as per HPI Hematologic/Lymphatic: Hematologic/Lymphatic: Reports no additional hematologic/lymphatic complaints, Reports as per HPI and Reports other (No peripheral edema) FORMERLY [facility] Past Medical History Medical History (Updated 03/09/22 @ 20:25 by Allen Mckeon MD) Fibromyalgia Sciatica Seizures Surgical History Tubal ligation status Social History Social History Alcohol intake: never Patient Tobacco Use Status: Current someday Tobacco user Use of substances other than those prescribed or required for medical reasons: No Advance Directives: No Physical Exam Vital Signs: Vital Signs: Last Vital Signs Temp 98.5 F 03/09/22 19:14 Pulse 67 03/09/22 19:14 Resp 16 03/09/22 19:14 BP 119/74 03/09/22 19:14 Pulse Ox 97 03/09/22 19:14 BMI result Body Mass Index 32.3 Const: Other: PERRLA Conj [place] Mucous membranes moist Throat clear Neck supple Lungs CTA Heart RRR no murmurs rubs or gallops Abd soft, non tender, non distended Extremities no pitting edema Neuro alert and oriented x 3, non focal MDM - Neuro Symptoms/Deficit MDM Narrative Medical decision making narrative: Patient with history of migraine headaches, has had right-sided migraine type headache, waxing and waning, onset this evening. Patient also had some right facial and right arm paresthesias. Patient was treated with droperidol and Ativan and was able to fall sleep, upon re-evaluation states her symptoms were resolved. Patient cannot take ibuprofen, tramadol, Reglan, Compazine. Will trial Imitrex. Medical Records Attestation: I reviewed the patient's medical records. Lab Data Attestation: I reviewed the patient's lab results. Result diagrams: 03/09/22 18:29 03/09/22 18:29 Labs: Lab Results 03/09/22 03/09/22 03/09/22 Range/Units 18:29 18:29 18:29 WBC 6.1 (4.8-10.8) X10*3/uL RBC 5.36 (4.20-5.50) X10*6/uL Hgb 14.2 (12.0-16.0) g/dl Hct 44.1 (37.0-47.0) % MCV 82.3 (80.0-98.0) fL MCH 26.5 L (27.0-33.0) pg MCHC 32.2 (31.0-35.0) g/dl RDW 15.0 (11.0-16.0) % Plt Count 318 (160-400) X10*3/uL MPV 9.9 (9.4-12.3) fL Immature Gran % (Auto) 0.3 (0.0-0.4) % Neut % (Auto) 49.4 (45-73) % Lymph % (Auto) 39.6 (20-40) % [place] % (Auto) 7.9 (2-11) % Eos % (Auto) 1.8 (0-4) % Baso % (Auto) 1.0 (0-2) % Lymph # (Auto) 2.4 (1.2-4.9) X10*3/uL [place] # (Auto) 0.5 (0.1-1.2) X10*3/uL Eos # (Auto) 0.1 (0.0-0.4) X10*3/uL Baso # (Auto) 0.1 (0.0-0.2) X10*3/uL Abs Immat Gran (auto) 0.02 (0.00-0.03) X10*3/uL Absolute Neuts (auto) 3.0 (2.0-8.3) x10*3/uL Absolute Nucleated RBC 0.000 (0.0-0.012) X10*3/uL Nucleated RBC % (auto) 0.0 (0.0-0.2) /100WBC PT 12.6 (9.9-13.0) SEC INR 1.1 (0.9-1.1) Sodium 140 (135-145) mmol/L Potassium 4.2 (3.3-5.1) mmol/L Chloride 108 (96-108) mmol/L Carbon Dioxide 24 (22-29) mmol/L Anion Gap 12 (12-20) BUN 16 (9-16) mg/dL Creatinine 0.85 (0.5-1.4) mg/dL Estim Creat Clear Calc 94.0 Estimated GFR > 60 Random Glucose 98 (60-115) mg/dL Calcium 9.5 D (8.4-10.2) mg/dL Total Bilirubin 0.2 (0.0-1.0) mg/dL AST 16 (5-31) U/L ALT 24 (0-31) U/L Alkaline Phosphatase 92 (39-117) U/L Troponin I High Sens (<3.5-17.0) ng/L Total Protein 7.7 (6.5-8.0) g/dL Albumin 4.1 (3.5-5.0) g/dL COVID-19 ([facility]) (Negative) COVID-19 Clin Com Influenza Type A ([facility]) (Negative) Influenza Type B ([facility]) (Negative) Influenza A & B Note 03/09/22 03/09/22 03/09/22 Range/Units 18:29 18:29 18:31 WBC (4.8-10.8) X10*3/uL RBC (4.20-5.50) X10*6/uL Hgb (12.0-16.0) g/dl Hct (37.0-47.0) % MCV (80.0-98.0) fL MCH (27.0-33.0) pg MCHC (31.0-35.0) g/dl RDW (11.0-16.0) % Plt Count (160-400) X10*3/uL MPV (9.4-12.3) fL Immature Gran % (Auto) (0.0-0.4) % Neut % (Auto) (45-73) % Lymph % (Auto) (20-40) % [place] % (Auto) (2-11) % Eos % (Auto) (0-4) % Baso % (Auto) (0-2) % Lymph # (Auto) (1.2-4.9) X10*3/uL [place] # (Auto) (0.1-1.2) X10*3/uL Eos # (Auto) (0.0-0.4) X10*3/uL Baso # (Auto) (0.0-0.2) X10*3/uL Abs Immat Gran (auto) (0.00-0.03) X10*3/uL Absolute Neuts (auto) (2.0-8.3) x10*3/uL Absolute Nucleated RBC (0.0-0.012) X10*3/uL Nucleated RBC % (auto) (0.0-0.2) /100WBC PT (9.9-13.0) SEC INR (0.9-1.1) Sodium (135-145) mmol/L Potassium (3.3-5.1) mmol/L Chloride (96-108) mmol/L Carbon Dioxide (22-29) mmol/L Anion Gap (12-20) BUN (9-16) mg/dL Creatinine (0.5-1.4) mg/dL Estim Creat Clear Calc Estimated GFR Random Glucose (60-115) mg/dL Calcium (8.4-10.2) mg/dL Total Bilirubin (0.0-1.0) mg/dL AST (5-31) U/L ALT (0-31) U/L Alkaline Phosphatase (39-117) U/L Troponin I High Sens < 3.5 (<3.5-17.0) ng/L Total Protein (6.5-8.0) g/dL Albumin (3.5-5.0) g/dL COVID-19 ([facility]) Negative (Negative) COVID-19 Clin Com See Note Influenza Type A ([facility]) Negative (Negative) Influenza Type B ([facility]) Negative (Negative) Influenza A & B Note See Note Discharge Plan Discharge Clinical Impression: Migraine headache Patient Disposition: Home, Self-Care Instructions: Migraine Headache (ED) Additional Instructions: Use Imitrex for any recurrent migraine headache. Follow-up with your primary care physician Prescriptions: New sumatriptan succinate [Imitrex] 25 mg tablet See Rx Instructions .ROUTE .COMPLEX Qty: 10 0RF Rx Instructions: take 1 tab at onset of headache; if no relief may repeat 1 tab after at least 2 hrs; max = 4 tabs/24 hr No Action prednisone 20 mg tablet 40 mg PO DAILY Qty: 10 0RF cyclobenzaprine 10 mg tablet 10 mg PO TID PRN (Reason: pain) Qty: 18 0RF Rx Instructions: side effect is drowsiness. Do not take at work or while driving. diazepam [Valium] 5 mg tablet 5 mg PO TID PRN (Reason: muscle spasm) Qty: 10 0RF oxycodone-acetaminophen [Percocet] 5-325 mg tablet 1 tab PO Q6H PRN (Reason: pain) Qty: 10 0RF cyclobenzaprine 5 mg tablet 5 mg PO TID PRN (Reason: muscle spasm) Qty: 14 0RF amoxicillin 500 mg capsule 500 mg PO TID 7 Days Qty: 21 0RF
[2022-03-09 19:14] VITALS: BP 119/74; PULSE 67; RESP 16; TEMP 36.9; O2SAT 97
[2022-03-09] MEDS: LORazepam 2 MG/ML VIAL 1 MG IVPUSH (19:30)
--- NOTE | 2022-03-09 20:05 | PC.NURSE ---
pt sleeping at this time, VSS, pt remains on monitor
[2022-03-09 21:25] VITALS: PULSE 76; RESP 15; O2SAT 97
== END 2022-03-09 21:26 | disposition home or self-care (01) ==
PROVIDERS: Emergency Provider Emergency Medicine
DX: G43.009 Migraine without aura, not intractable, without status migrainosus (principal); R20.2 Paresthesia of skin; Z20.822 Contact with and (suspected) exposure to COVID-19
CPT/HCPCS: 80053; 84484; 85025; 85610; 87502; 87635; 93005; 96374; 96375; 99284; J2060

== ENCOUNTER 2022-09-20 09:40 | Emergency (ER) | payer OTHER, SELFPAY ==
--- NOTE | ~2022-09-20 | CT_ITS ---
EXAMINATION: CT ABDOMEN AND PELVIS WITH CONTRAST CLINICAL INFORMATION: Right lower quadrant pain COMPARISON: Previous CT of the abdomen and pelvis from 2018 TECHNIQUE: Multidetector volumetric images were obtained from the superior aspect of the liver through the pubic symphysis following administration 85 mL of Omnipaque 350 intravenous contrast. Sagittal and coronal reformatted images were obtained on the technologist's workstation. Oral contrast: Yes This CT examination was performed using dose optimization techniques as appropriate, variously including the following: *Automated exposure control *Adjustment of mA and/or kV according to patient size (this includes techniques or standardized protocols for targeted exams where dose is matched to indication/reason for exam; i.e. extremities or head) *Use of iterative reconstruction technique DLP: 719 mGy-cm FINDINGS: LUNG BASES: Small peripheral or subpleural right base pulmonary nodules probably representing subpleural lymph nodes, largest measuring 3 mm. LIVER, GALLBLADDER, AND BILIARY TREE: The liver is normal in size, shape, and attenuation. No focal hepatic lesion or biliary ductal dilatation is present. The gallbladder is unremarkable with no evidence of radiopaque gallstones, gallbladder wall thickening, or obvious pericholecystic inflammatory changes. PANCREAS: Unremarkable. SPLEEN: Unremarkable. ADRENAL GLANDS: Unremarkable. KIDNEYS AND URETERS: The kidneys are normal in size, shape, and attenuation. No hydronephrosis, hydroureter, or calculi seen. No perinephric stranding. BLADDER: Unremarkable. GASTROINTESTINAL TRACT: The small and large bowel are unremarkable. The appendix is unremarkable. ABDOMINAL WALL: Diastasis of the rectus muscles and small umbilical hernia containing fat. LYMPH NODES: Normal. VASCULAR: Unremarkable. PELVIC VISCERA: Unremarkable. OSSEOUS STRUCTURES: Unremarkable. CT/CT abdomen pelvis w IV con IMPRESSION: Diastasis of the rectus muscles and small umbilical hernia containing fat. Normal-appearing appendix. Fleischner guidelines were followed.
[2022-09-20 09:46] VITALS: BP 125/76; PULSE 78; RESP 18; TEMP 36.6; O2SAT 100; BMI 32.9
[2022-09-20 10:23] VITALS: BP 114/68; PULSE 75; RESP 14; TEMP 36.8; O2SAT 100
--- NOTE | 2022-09-20 10:23 | ED_ITS ---
HPI - Abdominal Pain General Chief Complaint: Abdominal Pain Stated Complaint: Pain R Hip Leg No Injury Time Seen by Provider: 09/20/22 09:56 Source: patient Mode of arrival: ambulatory Limitations: no limitations History of Present Illness HPI narrative: This is a 41-year-old female with asthma and fibromyalgia who presents with right-sided abdominal pain since waking with nausea. Patient denies any urinary symptoms, vomiting, fever, diarrhea or constipation. She denies any vaginal discharge, rashes or lesion Related Data Previous Rx's Medication Instructions Recorded diazepam 5 mg tablet (Valium) 5 mg PO TID PRN muscle spasm #10 08/04/20 tabs cyclobenzaprine 5 mg tablet 5 mg PO TID PRN muscle spasm #14 08/25/20 tabs oxycodone-acetaminophen 5 mg-325 1 tab PO Q6H PRN pain #10 tabs 08/25/20 mg tablet (Percocet) amoxicillin 500 mg capsule 500 mg PO TID 7 days #21 caps 09/24/20 cyclobenzaprine 10 mg tablet 10 mg PO TID PRN pain #18 tabs 03/04/21 prednisone 20 mg tablet 40 mg PO DAILY #10 tabs 03/04/21 sumatriptan succinate 25 mg tablet See Rx Instructions PO .COMPLEX 03/09/22 (Imitrex) #10 tabs Allergies Allergy/AdvReac Type Severity Reaction Status Date / Time metoclopramide [From REGLAN] Allergy Severe ALL OVER Verified 03/03/21 23:03 BODY SWELLING tramadol [TRAMADOL] Allergy Mild PALPATATION Verified 03/03/21 23:03 S ibuprofen [IBUPROFEN] Allergy Unknown VOMITING/ABD Verified 03/03/21 23:03 PAIN prochlorperazine Allergy Unknown ? Verified 03/03/21 23:03 [From COMPAZINE] TACHYCARDIA PT IS UNSURE Review of Systems Review of Systems Yes all other systems are reviewed and are negative Constitutional: Reports no additional constitutional complaints, Denies body ache(s), Denies chills, Denies fever(s), Denies headache(s) and Denies weakness Eyes: Reports no additional eye complaints and Denies change in vision Reports system reviewed and no additional complaints, except as documented, Denies dizziness, Denies headache(s), Denies nasal congestion, Denies nasal discharge and Denies neck pain Cardiovascular: Reports no additional cardiovascular complaints, Denies chest pain, Denies leg edema and Denies dyspnea Respiratory: Reports no additional respiratory complaints, Denies cough and Denies dyspnea Gastrointestinal: Reports no additional gastrointestinal complaints, Reports abdominal pain, Denies diarrhea, Reports nausea and Denies vomiting Genitourinary: Reports no additional female genitourinary complaints and Denies urinary incontinence Musculoskeletal: Reports no additional musculoskeletal complaints, Denies back pain, Denies arthralgias, Denies joint swelling, Denies neck pain, Denies numbness and Denies tingling Skin/Breast: Reports system reviewed and no additional complaints, except as docu and Denies rash Reports system reviewed and no additional complaints, except as documented, Denies dizziness, Denies headache(s), Denies numbness, Denies tingling and Denies weakness PMFSH Past Medical History Attestation statement: The following information was validated with the patient. Source: old records reviewed and nursing notes reviewed Medical History Fibromyalgia Sciatica Seizures Surgical History Tubal ligation status Social History Social History Alcohol intake: never Patient Tobacco Use Status: Current someday Tobacco user Advance Directives: No Physical Exam ED Vital Signs: Vital Signs - 24 hr 09/20/22 09:46 09/20/22 10:23 09/20/22 12:07 Temperature 98 F 98.2 F 98.3 F Pulse Rate 78 75 75 Respiratory Rate 18 14 16 Blood Pressure 125/76 114/68 98/40 L Pulse Oximetry 100 100 100 Oxygen Delivery Method Room Air Room Air Room Air BMI result Body Mass Index 32.9 Const General: cooperative, healthy appearing, comfortable and no acute distress Orientation/consciousness: patient oriented x3 Limitations: no limitations HENMT Head: Yes normal to inspection Ears: hearing grossly normal bilaterally Eyes General: appearance normal, both eyes and all related structures Pupils: Equal, round and reactive pupils present Neck Neck: Yes normal visual inspection Chest Chest palpation & inspection: normal inspection of the chest Resp Effort & Inspection: normal respiratory effort Auscultation: clear to auscultation bilaterally Cardio Rate: regular rate Rhythm: regular rhythm Peripheral pulses: Peripheral pulses 2+ throughout GI Inspection: Yes normal to inspection Palpation (GI): Soft to palpation and Tenderness to palpation present (GI) in the RLQ and in the RUQ Auscultation: normal bowel sounds General: Yes no CVA tenderness Back/Spine/Pelvis Back: no CVA tenderness Thoracic/Lumbar Spine: thoracic and lumbar spine normal to inspection Skin General skin exam: no rashes or lesions noted Neuro General: patient oriented x3 and moves all extremities Cranial nerves: Yes Equal, round and reactive pupils present Cognition (Neuro): normal cognition Gait exam (Neuro): Normal gait present Extrem General: Yes normal to inspection, Yes no pedal edema and Yes no calf tenderness Course Course Course Narrative: Labs are unremarkable. UA shows no signs of infection. CT is negative for any acute intra-abdominal pathology with the exception of an umbilical hernia. This was explained to the patient at the bedside. She overall is feeling improved. Resting comfortably. Tolerating p.o.. Plan for discharge home. Reviewed worrisome signs and symptoms when to return to the emergency room. Comfortable plan for discharge home. Medical Decision Making Medical Decision Making [facility] Narrative: 41-year-old female here with right-sided abdominal pain and nausea with waking. Will need labs, UA, urine . Will give IV fluids, antiemetic and pain control. Differential Diagnosis Differential Diagnoses: The differential diagnosis associated with the presentation includes Consider appendicitis, renal colic, pyelonephritis, cholecystitis Lab Data [facility] Lab Attestation statement: I reviewed the patient's lab results. Result Diagrams: 09/20/22 11:09/20/22 11: Labs: Lab Results 09/20/22 09/20/22 09/20/22 Range/Units 11:01 11: 11:01 WBC 6.8 (4.8-10.8) X10*3/uL RBC 5.45 (4.20-5.50) X10*6/uL Hgb 14.7 (12.0-16.0) g/dl Hct 45.1 (37.0-47.0) % MCV 82.8 (80.0-98.0) fL MCH 27.0 (27.0-33.0) pg MCHC 32.6 (31.0-35.0) g/dl RDW 14.6 (11.0-16.0) % Plt Count 290 (160-400) X10*3/uL MPV 9.9 (9.4-12.3) fL Immature Gran % (Auto) 0.1 (0.0-0.4) % Neut % (Auto) 56.7 (45-73) % Lymph % (Auto) 35.1 (20-40) % [place] % (Auto) 6.6 (2-11) % Eos % (Auto) 0.9 (0-4) % Baso % (Auto) 0.6 (0-2) % Lymph # (Auto) 2.4 (1.2-4.9) X10*3/uL [place] # (Auto) 0.5 (0.1-1.2) X10*3/uL Eos # (Auto) 0.1 (0.0-0.4) X10*3/uL Baso # (Auto) 0.0 (0.0-0.2) X10*3/uL Abs Immat Gran (auto) 0.01 (0.00-0.03) X10*3/uL Absolute Neuts (auto) 3.9 (2.0-8.3) x10*3/uL Absolute Nucleated RBC 0.000 (0.0-0.012) X10*3/uL Nucleated RBC % (auto) 0.0 (0.0-0.2) /100WBC Sodium 139 (135-145) mmol/L Potassium 4.3 (3.3-5.1) mmol/L Chloride 109 H (96-108) mmol/L Carbon Dioxide 24 (22-29) mmol/L Anion Gap 10 L (12-20) BUN 15 (9-16) mg/dL Creatinine 0.80 (0.5-1.4) mg/dL Estim Creat Clear Calc 93.4 Estimated GFR > 60 Random Glucose 116 H (60-115) mg/dL Calcium 8.8 D (8.4-10.2) mg/dL Total Bilirubin 0.2 (0.0-1.0) mg/dL Direct Bilirubin < 0.2 (0.0-0.5) mg/dL AST 17 (5-31) U/L ALT 20 (0-31) U/L Alkaline Phosphatase 80 (39-117) U/L Total Protein 7.0 (6.5-8.0) g/dL Albumin 3.9 (3.5-5.0) g/dL Lipase 17 (8-78) U/L Urine Color Yellow Urine Appearance Cloudy Urine pH 5.5 (5.0-9.0) Ur Specific [place] >= 1.030 H (1.005-1.025) Urine Protein Negative (Neg-Trace) mg/dL Urine Glucose (UA) Negative (Negative) mg/dL Urine Ketones Negative (Negative) mg/dL Urine Blood Negative (Negative) Urine Nitrite Negative (Negative) Ur Leukocyte Esterase Negative (Negative) Urine Test (NEGATIVE) COVID-19 ([facility]OSHUA) (Negative) COVID-19 Clin Com 09/20/22 09/20/22 Range/Units 11:01 11:41 WBC (4.8-10.8) X10*3/uL RBC (4.20-5.50) X10*6/uL Hgb (12.0-16.0) g/dl Hct (37.0-47.0) % MCV (80.0-98.0) fL MCH (27.0-33.0) pg MCHC (31.0-35.0) g/dl RDW (11.0-16.0) % Plt Count (160-400) X10*3/uL MPV (9.4-12.3) fL Immature Gran % (Auto) (0.0-0.4) % Neut % (Auto) (45-73) % Lymph % (Auto) (20-40) % [place] % (Auto) (2-11) % Eos % (Auto) (0-4) % Baso % (Auto) (0-2) % Lymph # (Auto) (1.2-4.9) X10*3/uL [place] # (Auto) (0.1-1.2) X10*3/uL Eos # (Auto) (0.0-0.4) X10*3/uL Baso # (Auto) (0.0-0.2) X10*3/uL Abs Immat Gran (auto) (0.00-0.03) X10*3/uL Absolute Neuts (auto) (2.0-8.3) x10*3/uL Absolute Nucleated RBC (0.0-0.012) X10*3/uL Nucleated RBC % (auto) (0.0-0.2) /100WBC Sodium (135-145) mmol/L Potassium (3.3-5.1) mmol/L Chloride (96-108) mmol/L Carbon Dioxide (22-29) mmol/L Anion Gap (12-20) BUN (9-16) mg/dL Creatinine (0.5-1.4) mg/dL Estim Creat Clear Calc Estimated GFR Random Glucose (60-115) mg/dL Calcium (8.4-10.2) mg/dL Total Bilirubin (0.0-1.0) mg/dL Direct Bilirubin (0.0-0.5) mg/dL AST (5-31) U/L ALT (0-31) U/L Alkaline Phosphatase (39-117) U/L Total Protein (6.5-8.0) g/dL Albumin (3.5-5.0) g/dL Lipase (8-78) U/L Urine Color Urine Appearance Urine pH (5.0-9.0) Ur Specific [place] (1.005-1.025) Urine Protein (Neg-Trace) mg/dL Urine Glucose (UA) (Negative) mg/dL Urine Ketones (Negative) mg/dL Urine Blood (Negative) Urine Nitrite (Negative) Ur Leukocyte Esterase (Negative) Urine Test NEGATIVE (NEGATIVE) COVID-19 (JOSHUA) Negative (Negative) COVID-19 Clin Com See Note Independent Interpretation I performed an independent interpretation of an: CT Scan Interpretation: CT was visualized by Radiology with no acute finding noted Radiology Impression Discussion of test interpretation with radiology: I discussed test interpretation with the radiologist and I have reviewed the radiologist's reading. Medications Administered Discontinued Medications Generic Name Dose Route Start Last Admin Trade Name Freq PRN Reason Stop Dose Admin Sodium Chloride 1,000 mls @ 999 mls/hr 09/20/22 10:15 09/20/22 13:01 Ns IV 09/20/22 11:15 Infused .Q1H1M RE Infusion Iohexol 85 ml 09/20/22 12:00 09/20/22 12:00 Iohexol 350 Mg/Ml 100 Ml Infus..Btl IV 09/20/22 12:01 85 ml ONCE ONE Administration Morphine Sulfate 4 mg 09/20/22 10:01 09/20/22 11:03 Morphine Sulfate 4 Mg/Ml Cartridge IVPUSH 09/20/22 10:02 4 mg ONCE ONE Administration Protocol Ondansetron HCl 4 mg 09/20/22 10:01 09/20/22 11:03 Ondansetron Hcl 4 Mg/2 Ml Vial IVPUSH 09/20/22 10:02 4 mg ONCE ONE Administration Discharge Plan Discharge Clinical Impression: Abdominal pain Patient Disposition: Home, Self-Care Instructions: Abdominal Pain (ED) Additional Instructions: Labs, urine testing, CT scan looks okay Motrin or tylenol for pain or fever Increase fluids, rest Prescriptions: No Action prednisone 20 mg tablet 40 mg PO DAILY Qty: 10 0RF cyclobenzaprine 10 mg tablet 10 mg PO TID PRN (Reason: pain) Qty: 18 0RF Rx Instructions: side effect is drowsiness. Do not take at work or while driving. diazepam [Valium] 5 mg tablet 5 mg PO TID PRN (Reason: muscle spasm) Qty: 10 0RF oxycodone-acetaminophen [Percocet] 5-325 mg tablet 1 tab PO Q6H PRN (Reason: pain) Qty: 10 0RF cyclobenzaprine 5 mg tablet 5 mg PO TID PRN (Reason: muscle spasm) Qty: 14 0RF amoxicillin 500 mg capsule 500 mg PO TID 7 Days Qty: 21 0RF sumatriptan succinate [Imitrex] 25 mg tablet See Rx Instructions .ROUTE .COMPLEX Qty: 10 0RF Rx Instructions: take 1 tab at onset of headache; if no relief may repeat 1 tab after at least 2 hrs; max = 4 tabs/24 hr Referrals: Rosita Vizcarra MD [Primary Care Provider] - 1 week Interventions: ED Discharge Assessment Last Done: 09/20/22 13:34 Discharge Date/Time: 09/20/22 13:34
[2022-09-20] MEDS: ondansetron HCL 4 MG/2 ML VIAL IVPUSH (11:03)
[2022-09-20] MEDS: Morphine Sulfate 4 MG/ML CARTRIDGE IVPUSH (11:03)
[2022-09-20] MEDS: 0.9 % Sodium Chloride 1,000 ML 999 ML IV (11:06)
[2022-09-20 11:07] LABS: MANUAL DIFF FLAG NO
[2022-09-20 11:09] LABS: Basophils Percent Auto 0.6 % (0-2); Eosinophils Absolute Auto 0.1 X10*3/uL (0.0-0.4); Eosinophils Percent Auto 0.9 % (0-4); Hematocrit 45.1 % (37.0-47.0); Hemoglobin 14.7 g/dl (12.0-16.0); Imm Gran Abs Auto 0.01 X10*3/uL (0.00-0.03); Imm Gran Pct Auto 0.1 % (0.0-0.4); Lymphocytes Absolute Auto 2.4 X10*3/uL (1.2-4.9); Lymphocytes Percent Auto 35.1 % (20-40); Mean Corpuscular HGB Conc 32.6 g/dl (31.0-35.0); Mean Corpuscular Volume 82.8 fL (80.0-98.0); Mean Platelet Volume 9.9 fL (9.4-12.3); Monocytes Absolute Auto 0.5 X10*3/uL (0.1-1.2); Monocytes Percent Auto 6.6 % (2-11); Neutrophils Absolute Auto 3.9 x10*3/uL (2.0-8.3); Neutrophils Percent Auto 56.7 % (45-73); Platelet Count 290 X10*3/uL (160-400); Red Blood Count 5.45 X10*6/uL (4.20-5.50); Red Cell Distribution Width 14.6 % (11.0-16.0); White Blood Count 6.8 X10*3/uL (4.8-10.8)
--- NOTE | 2022-09-20 11:10 | PC.NURSE ---
pt sleepy but easily arousable. oriented x 3. complains of rlq abdominal pain. gave her fluids, morphine and zofran
[2022-09-20 11:11] LABS: Appearance Urine Cloudy; Color Urine Yellow; Glucose Urine UA Negative (Negative); Leukocyte Esterase Urine Negative (Negative); Nitrite Urine Negative (Negative); PH 5.5 (5.0-9.0); Specific Gravity - Urine >= 1.030 (1.005-1.025); Urine Blood Negative (Negative); Urine Ketones Negative (Negative); Urine Protein Negative (Neg-Trace)
[2022-09-20 11:13] LABS: UPreg QC Valid YES; Urine Pregnancy NEGATIVE (NEGATIVE)
[2022-09-20 11:23] LABS: Alanine Aminotransferase 20 U/L (0-31); Albumin Level 3.9 g/dL (3.5-5.0); Alkaline Phosphatase 80 U/L (39-117); Anion Gap 10 (12-20); Aspartate Amino Transferase 17 U/L (5-31); Bilirubin Direct < 0.2 mg/dL (0.0-0.5); Bilirubin Total 0.2 mg/dL (0.0-1.0); Blood Urea Nitrogen 15 mg/dL (9-16); Calcium 8.8 mg/dL (8.4-10.2); Carbon Dioxide 24 mmol/L (22-29); Chloride 109 mmol/L (96-108); Creatinine Clr Calc Pharmacy 93.4; Estimated Glomerular Filt Rate > 60; Glucose Random 116 mg/dL (60-115); Lipase 17 U/L (8-78); Potassium 4.3 mmol/L (3.3-5.1); Sodium 139 mmol/L (135-145)
[2022-09-20] MEDS: iohexoL 350 MG/ML 100 ML INFUS..BTL 85 ML IV (12:00)
[2022-09-20 12:04] LABS: COVID-19 Test Negative (Negative); IDNOW Serial# 55D5AD1C
[2022-09-20 12:07] VITALS: BP 98/40; PULSE 75; RESP 16; TEMP 36.8; O2SAT 100
--- NOTE | 2022-09-20 12:10 | PC.NURSE ---
pt. resting comfortably. reports improved pain 03/18. BP 98/40. a little drowsy but easil arousable. waiting on ct report
== END 2022-09-20 13:34 | disposition home or self-care (01) ==
PROVIDERS: Nurse Practitioner Family; Emergency Provider Emergency Medicine; PCP Internal Medicine
DX: M25.551 Pain in right hip (principal); R10.9 Unspecified abdominal pain; R11.0 Nausea; Z20.822 Contact with and (suspected) exposure to COVID-19; F17.200 Nicotine dependence, unspecified, uncomplicated; Z71.6 Tobacco abuse counseling; Z79.899 Other long term (current) drug therapy
CPT/HCPCS: 36415; 74177; 80048; 80076; 81003; 81025; 83690; 85025; 87635; 96361; 96374; 96375; 99284; J2270; J2405; Q9967

== ENCOUNTER 2023-03-12 03:36 | Emergency (ER) | payer OTHER, SELFPAY ==
--- NOTE | ~2023-03-12 | CT_ITS ---
EXAMINATION: CT CHEST WITH CONTRAST CLINICAL INFORMATION: Acute traumatic chest pain. COMPARISON: None available. TECHNIQUE: Multidetector volumetric CT imaging of the chest was obtained after the administration of 65 mL of Omnipaque 350 intravenous contrast without immediate adverse reactions. Axial MIP volume rendering provided. Sagittal and coronal reformatted images were obtained. This CT examination was performed using dose optimization techniques as appropriate, variously including the following: *Automated exposure control *Adjustment of mA and/or kV according to patient size (this includes techniques or standardized protocols for targeted exams where dose is matched to indication/reason for exam; i.e. extremities or head) *Use of iterative reconstruction technique DLP: 914 mGy-cm (total, for CT exams of the head and chest). FINDINGS: LUNGS AND PLEURA: The airways are unremarkable. Lungs are well expanded. Small 0.3 cm noncalcified nodule or lymph node along the minor fissure (axial image 161/471). Also, a few other small nodules or lymph nodes are present along the right major fissure. Small noncalcified pleural-based nodules that measure up to 0.4 cm are seen in the right middle lobe and lateral right lower lobe (images 230 and 237). Based on Fleischner Society guidelines, no imaging follow-up is recommended in a low-risk patient. Noncontrast chest CT follow-up at 12 months would be considered optional in a high risk patient. No pulmonary consolidation, pneumothorax or pleural effusion. CARDIOVASCULAR: The heart size is normal. No pericardial effusion. Pulmonary arteries and thoracic aorta are normal. CORONARY ARTERY CALCIFICATION: None detected. MEDIASTINUM AND LOWER NECK: No pneumomediastinum. The esophagus and visualized portion of the thyroid gland are unremarkable. LYMPHATICS: No pathologic sized lymph nodes. UPPER ABDOMEN: No acute findings in the visualized portion of the upper abdomen. Adrenal glands are normal. SKELETAL AND CHEST WALL: No chest wall hematoma. Sternum is intact. No evidence of acute rib fracture. Bones have normal alignment at the visualized shoulders. Thoracic vertebra have normal height and alignment. CT/CT chest w IV con IMPRESSION: * No acute traumatic pathology in the chest. No pulmonary contusion, pneumothorax or pleural effusion. * Incidentally noted are several small pulmonary nodules and/or pleural-based or perifissural lymph nodes. Based on Fleischner Society guidelines, chest CT follow-up is not recommended in a low-risk patient.
--- NOTE | ~2023-03-12 | XR_ITS ---
EXAMINATION: XR SHOULDER, LEFT CLINICAL INFORMATION: Acute left shoulder pain COMPARISON: None available. TECHNIQUE: Two views of the left shoulder. FINDINGS: Glenohumeral alignment is anatomic. No acute fracture is seen. The acromioclavicular joint is intact. XR/XR shoulder LT min 2V IMPRESSION: No acute findings.
--- NOTE | ~2023-03-12 | CT_ITS ---
EXAMINATION: CT HEAD WITHOUT CONTRAST CLINICAL INFORMATION: Headache, trauma. COMPARISON: Head CT from 01/11/2007 TECHNIQUE: Contiguous axial imaging was performed from the skull base to vertex without intravenous administration of contrast. This CT examination was performed using dose optimization techniques as appropriate, variously including the following: *Automated exposure control *Adjustment of mA and/or kV according to patient size (this includes techniques or standardized protocols for targeted exams where dose is matched to indication/reason for exam; i.e. extremities or head) *Use of iterative reconstruction technique DLP: 914 mGy-cm FINDINGS: The brain parenchyma has normal attenuation. The mcnulty-white matter differentiation is well preserved. No evidence of an acute major vascular territory infarction. No intracranial hemorrhage, extra-axial fluid collection, focal mass effect or midline shift. The ventricles have normal size and configuration; no hydrocephalus. The brainstem and cerebellum have a normal appearance. The cerebellar tonsils are in normal position. The calvarium is intact. A mucous retention cyst of the right maxillary sinus is partially included in the [id number]. Otherwise, the visualized paranasal sinuses, mastoid air cells and middle ear cavities are well aerated. The orbits and globes are unremarkable. The temporomandibular joints are normal. CT/CT head/brain wo IV con IMPRESSION: No acute intracranial pathology.
[2023-03-12 03:42] VITALS: BP 125/80; PULSE 74; RESP 18; TEMP 36.7; O2SAT 99; BMI 40.8
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
[2023-03-12 05:47] LABS: Basophils Absolute Auto 0.1 X10*3/uL (0.0-0.2); Basophils Percent Auto 1.1 % (0-2); Eosinophils Absolute Auto 0.1 X10*3/uL (0.0-0.4); Eosinophils Percent Auto 1.9 % (0-4); Hematocrit 44.7 % (37.0-47.0); Hemoglobin 14.4 g/dl (12.0-16.0); Imm Gran Abs Auto 0.01 X10*3/uL (0.00-0.03); Imm Gran Pct Auto 0.2 % (0.0-0.4); Lymphocytes Absolute Auto 3.1 X10*3/uL (1.2-4.9); Lymphocytes Percent Auto 53.8 % (20-40); MANUAL DIFF FLAG NO; Mean Corpuscular HGB Conc 32.2 g/dl (31.0-35.0); Mean Corpuscular Hemoglobin 26.8 pg (27.0-33.0); Mean Corpuscular Volume 83.1 fL (80.0-98.0); Mean Platelet Volume 9.6 fL (9.4-12.3); Monocytes Absolute Auto 0.3 X10*3/uL (0.1-1.2); Neutrophils Absolute Auto 2.1 x10*3/uL (2.0-8.3); Platelet Count 289 X10*3/uL (160-400); Red Blood Count 5.38 X10*6/uL (4.20-5.50); Red Cell Distribution Width 14.2 % (11.0-16.0); White Blood Count 5.7 X10*3/uL (4.8-10.8)
[2023-03-12] MEDS: Morphine Sulfate 4 MG/ML CARTRIDGE IVPUSH (05:54)
[2023-03-12] MEDS: ondansetron HCL 4 MG/2 ML VIAL IVPUSH (05:54)
[2023-03-12] MEDS: 0.9 % Sodium Chloride 1,000 ML 999 ML IV (05:55)
--- NOTE | 2023-03-12 05:56 | PC.NURSE ---
IV established, pt medicated per DEC. Pt aware of plan of care, awaiting CT.
[2023-03-12 06:15] LABS: Alanine Aminotransferase 20 U/L (0-31); Alkaline Phosphatase 88 U/L (39-117); Anion Gap 10 (12-20); Aspartate Amino Transferase 14 U/L (5-31); Bilirubin Total 0.3 mg/dL (0.0-1.0); Blood Urea Nitrogen 17 mg/dL (9-16); Calcium 9.5 mg/dL (8.4-10.2); Carbon Dioxide 28 mmol/L (22-29); Chloride 107 mmol/L (96-108); Creatinine Clr Calc Pharmacy 93.2; Estimated Glomerular Filt Rate > 60; Glucose Random 89 mg/dL (60-115); Lipase 19 U/L (8-78); Potassium 4.4 mmol/L (3.3-5.1); Sodium 141 mmol/L (135-145); Total Protein 7.4 g/dL (6.5-8.0)
[2023-03-12 06:21] LABS: HCG Quantitative < 2 mIU/mL
[2023-03-12] MEDS: iohexoL 350 MG/ML 100 ML INFUS..BTL 65 ML IV (06:47)
--- NOTE | 2023-03-12 07:10 | PC.NURSE ---
Resumed care of patient this morning, significant other at bedside, she is a/ox4. Offers some complaints of pain, noted throughout the night, she is up and ambulating to the bathroom at this time, all needs met
[2023-03-12 07:21] VITALS: BP 112/65; PULSE 71; RESP 16; O2SAT 98
== END 2023-03-12 08:45 | disposition home or self-care (01) ==
PROVIDERS: Emergency Provider Emergency Medicine; PCP Internal Medicine
DX: S06.0XAA Concussion with loss of consciousness status unknown, initial encounter (principal); R07.89 Other chest pain; R51.9 Headache, unspecified; M54.6 Pain in thoracic spine; M25.512 Pain in left shoulder; V47.5XXA Car driver injured in collision with fixed or stationary object in traffic accident, initial encounter; Y93.9 Activity, unspecified; Y92.410 Unspecified street and highway as the place of occurrence of the external cause; Y99.9 Unspecified external cause status; F17.200 Nicotine dependence, unspecified, uncomplicated; Z71.6 Tobacco abuse counseling; Z79.899 Other long term (current) drug therapy
CPT/HCPCS: 36415; 70450; 71260; 73030; 80053; 83690; 84702; 85025; 93005; 96361; 96374; 96375; 99284; J2270; J2405; Q9967

== ENCOUNTER 2025-07-26 22:33 | Emergency (ER) | payer MEDICAID, SELFPAY ==
--- OUTSIDE RECORDS SUMMARY | 2025-07-22 10:24 | XMS_ITS | Encounter Summary ---
Author Organization [facility] Address [address] [place] [address] Care Team Providers Care Skill Training Program Coordinator Name Role Phone Pcp, No Primary Care Provider Unavailabl e Reason for Visit * Reason Comments Mouth Pain Encounter Details Date Type Department Care Team (Late st Contact Info) Description 07/22/2025 10:24 AM EDT - 07/22/2025 5:36 PM EDT Emergency [facility] Emergency Department [address] [place] [id number] Giovanna Chavis MD [address] [place] [address] [address] [place], [place] [id number] Jason Rogers MD [address] [place] [address] Dental abscess (Primary Dx) Discharge Disposition: Home or Self Care Social History Tobacco Use Types Packs/Day Years Used Date Smoking Tobacco: Never Smokeless Tobacco: Never Alcohol Use Standard Drinks/Week Comments Never 0 (1 standard drink = 0.6 oz pur e alcohol) Comments Unknown Sex and Gender Information Value Date Recorded Sex Assigned at Female 07/12/2024 6:05 PM EDT Legal Sex Female 5:13 PM EDT Gender Identity Female 07/12/2024 6:05 PM EDT Sexual Orientation Choose not to disclose 2023 6:05 PM EDT documented as of this encounter Last Filed Vital Signs Vital Sign Reading Time Taken Comments Blood Pressure 137/77 07/22/2025 4:54 PM EDT Pulse 67 07/22/2025 4:54 PM EDT Temperature 36.4 C (97.6 F) 07/22/2025 4:54 PM EDT Respiratory Rate 16 07/22/2025 4:54 PM EDT Oxygen Saturation 96% 07/22/2025 4:54 PM EDT Inhaled Oxygen Concentration - - Weight - - Height - - Body Mass Index - - documented in this encounter Discharge Instructions * Discharge Instructions* MIGNON Monterroso - 07/22/2025 4:42 PM EDT You were seen here in the ED with a dental abscess. Dental came in and drained this. Please do saltwater rinses twice daily. Keep a soft food diet for comfort. You will be given Augmentin which is an antibiotic and you must take this until it is not completely finished. Please follow-up with dental as needed. Return to the emergency department if you develop fever greater than 101, worsening symp toms or any other acute concerns. * Attachments The following attachments cannot be sent through Care Everywhere. * Dental Abscess (Ugandan) documented in this encounter Medications at Time of Discharge amoxicillin-clav ulanate (AUGMENTIN) 875-125 MG per tablet Take 1 tablet by mouth 2 (two) times a day. Take as directed or until you run out 14 tablet 07/22/2025 07/29/2025 documented as of this encounter Consult Notes * Hallie Pacheco DMD - 07/22/2025 4:50 PM EDT Dental Consult and Incision & Drainage Assessment & Plan Assessment 44 yo Female with a palatal abscess associated with right maxillary teeth,who is indicated for bedside incision and drainage. Consent was obtained. Bedside I&D performed, no complications. Plan(s): - augmentin for 7 days - Recommend taking 500 mg acetaminophen together every 6 hours for pain prn - warm salt water rinses twice daily - soft diet for comfort - follow up in [facility] dental [facility] Procedure: Incision and drainage Details of the Procedure: 2 carpules 4% septocaine 1:100k epi and 2 carpules of 3% Carbocaine given via infiltration at sites. 15 blade used to make ~1 cm incision at palatal swelling. Palatal of right maxilla swept Purulence produced Copious irrigation, placement of frandy drain Secured with 2-0 silk. Bite down on gauze for one hour. The patient tolerated this procedure well. Post-procedure recommendations: -Keep drains in place until follow up -Abx as listed in consult note Subjective History of Present Illness Pt presents with swelling of the palate which started about 3 days ago and has pain but is not relieved with Tylenol. Pt reports seeing a dentist about 2 months ago but does not have one in [place]. Objective Reviewed medical history in EPIC and with patient. Extra-oral exam: No facial swelling, no skin erythema, no facial asymmetries. Intra-oral exam: General intra-oral appearance: Generalized poor dentition with multiple decayed teeth. No mobility noted. Acute infection possibly associated with grossly decayed teeth #4,5,6 Radiographic exam: Decayed teeth: yes Periodontally involved teeth: no Periapical Radiolucency: yes, better visualized on CT Sign: Hallie Pacheco DMD Cosigned by Alex Hugo DMD at 07/23/2025 10:37 AM EDT documented in this encounter ED Notes * Giovanna Chavis MD - 07/22/2025 1:33 PM EDT I personally saw the patient and performed a substantive portion of the visit including all aspectsof the medical decision-making. I reviewed the AP's or resident's findings, supervised the management of the patient, made/approved the management plan and take responsibility for the patient management. Further, I agree with the controlled substance prescriptions(s) and/or order(s) as written by the AP, if any. My note reflects my personal findings on my history and exam. HPI: 44-year-old female presenting with 4 days of mild swelling. Noted a bump to the top of her hard palate on Monday. Since then, has had increased right sided facial pain and right neck pain. Haspain with eating and drinking. Tried Tylenol without relief. See Advanced practitioner/resident note for detailed HPI and ROS PE: Gen:Patient well appearing, nad. Head: atraumatic. ENT: to the top of the hard palate, R side, has an area of fluctuance concerning for abscess. Has generalized right facial tenderness Neck: no midline C spine ttp, no induration. Tender likely cervical lymphadenopathy. Able to range CV: RRR. Lungs: CTA. Abd:soft, non tender. Msk: no deformity, no unilateral leg swelling. Neuro: alert, awake, answering appropriately, grossly moving all extremities. AP: 44-year-old female presenting with likely an abscess to the hard palate. Reports generalized right facial tenderness. Patient CT showed a periapical abscess with adjacent fluid collection in the roof of the mouth concerning for abscess as well. Will consult dental for I&D. Ultimately anticipate discharge with likely Augmentin I Reviewed any nurses notes, vital signs, home medication lists, other history or pertinent diagnostic tests available. ED BILLING Co-Morbidities Present During Encounter: See above. Comorbidities Impact on Encounter: See above Records Reviewed from External Provider, Facility, or Healthcare Organization: Recent visits in EMR. History Obtained from Other Source: Medical records. Interpretation of Diagnostic Study: Laboratory test. Radiology. Interpretation Comments: See above Testing or Treatment Considered but Not Performed: N/A. Discussion with Other Healthcare Provider: dental Prescription Medication Management: Prescription sent to pharmacy. See above for details. Social Determinants of Health that Impact Care: Patient-specific factors. Social Determinants Limited Treatment by: N/A Admission vs. Discharge: Patient discharged. See above for details regarding risk-stratification. Patient Refusal of Diagnostic Procedure or Treatment: N/A Critical Care: N/A 07/22/2025 1:33 PM Giovanna Chavis MD 07/25/25 1709 * Gudelia Blake RN - 07/22/2025 12:19 PM EDT Patient arrives to [facility] from home with mouth swelling x 3 days ago, pain as well. Pt having no difficulty swallowing or breathing. Pt is maintaining airway fine. Pt is A&Ox4, breathing at ease onroom air, in nad. Plan for labs, upreg, fingerstick, labs, medication, IV, iv fluid bolus. Pt is 99.9F temperature and hypertensive att. WCTM. Gudelia Blake RN 07/22/25 1220 * MIGNON Monterroso - 07/22/2025 12:09 PM EDT Images from the original note were not included. History Dunia Palomo is a 44 y.o. female presents today for 4 days of mouth swelling. She reports a bumpon the right side of her hard palate that appeared Monday morning. Pt reports the pain has been increasing since then, came into the ED as her voice sounded hoarse this morning. Pt reports a 100.2Fon Monday, chills, nausea, one episode of vomiting Monday night, headache, blurry vision, difficul ty swallowing, lip swelling, and unable to eat/drink since Monday. Pt rates the pain 06/18, tried tylenol with out relief. Pt denies chest pain, SOB, palpitations, cough, drooling, dental pain and trauma. Pt is allergic toreglan. Last saw a dentist 2 months ago but recently moved from [place] to [place] and has not established care here yet. History of present illness: Chief Complaint: I have reviewed the patients medications, allergies, past medical history, social history and family history as documented. No past medical history on file. No past surgical history on file. Social History[1] No family history on file. Review of Systems: CONSTITUTIONAL: Low grade fever, chills and fatigue. No recent illness. HEENT: Eyes: No visual loss.. Ears, Nose, Throat: No hearing loss, positive sore throat and voice change. CARDIOVASCULAR: No chest pain, chest pressure or chest discomfort. No palpitations or extremity edema. RESPIRATORY: No shortness of breath or cough. GASTROINTESTINAL: No abdominal pain, diarrhea. Positive nausea and vomiting. GENITOURINARY: No burning on urination. NEUROLOGICAL: No dizziness. No numbness or tingling in the extremities. No change in bowel or bladder control. Positive headache. MUSCULOSKELETAL: No pain in the extremities or joints. HEMATOLOGIC: No anemia, bleeding or bruising. SKIN: No rash, leisions or itching. Physical Vitals: 07/22/25 1023 BP: (!) 160/108 Pulse: 88 Resp: 16 Temp: 99.9 ??F (37.7 ??C) SpO2: 98% Vital signs reviewed. General: Patient is in acute distress. HEENT: Normocephalic, atraumatic, PERRL, EOMI. Dime sized abscess on the Right hard palate on the roof of the mouth. Front and maxillary sinuses tender to palpation. No significant swelling under thetongue. Neck: tender to palpation of right neck Cardiac: +S1/S2, no MRG, regular Chest: Breath sounds equal bilaterally, no wheezes, rales, or rhonchi Abdomen: Soft, nontender, nondistended,no rebound, no guarding Extremities: no edema Skin: Warm, well-perfused ED Course No diagnosis found. Medical Decision Making: MDM: Number and Complexity of Problems Addressed MDM Detail: Pt is a 44 y/o female presenting with 4 days of swollen mouth and 1 day of hoarse voice. Pt endorses fever, chills, nausea,vomiting , headache, blurry vision, difficulty swallowing, lip swelling, and unable to tolerate diet and liquids. Pt denies chest pain, SOB, palpitations, cough, drooling, dental pain and trauma. Differential includes localized abscess, odontogenic abscess, oral candidiasis, black hairy tongue,necrotizing periodontal disease, actinomycosis, rhinocerebral mucormycosis PLAN: CT sinuses and labs ordered to address localized vs systemic infection. IV fluids and tylenolordered for pain management. Labs were reassuring. CT scan shows Periapical lucency involving the right maxillary lateral incisor with partial extension into the adjacent right central incisor and right canine periapical regions compatible with periapical abscess or periapical cyst. Adjacent fluid collection extending into the roof of the mouth measuring 1.3 x 1 cm concerning for abscess. Adjacent upper lip soft tissue swelling. Additional periapical lucencies involving left maxillary molar teeth and multiple dental caries. Dental was consulted and is currently performing I&D here. 4:44 PM patient was successfully and by dental. They recommend p.o. Augmentin and salt water rinsestwice daily. Patient is stable for discharge home. Amount and Complexity of Data Risk of Complications and/or Morbidity or Mortality of Patient Management Critical Care I independently reviewed the EKG I retrieved and reviewed past records I independently reviewed radiology studies I spoke with the following non ED provider I reviewed outside labs / images Labs Reviewed BASIC METABOLIC PANEL - Abnormal; Notable for the following components: Result Value Glucose 121 (*) Sodium 135 (*) All other components within normal limits BLOOD CULTURE (HOSP LAB) COMPLETE BLOOD COUNT, WITH DIFFERENTIAL LACTIC ACID, PLASMA LACTIC ACID, PLASMA POCT , URINE (CHARGE) CT Sinuses w/contrast (Results Pending) MIGNON Monterroso PA-C 07/22/25 MIGNON Monterroso 07/22/25 1610 [1] Social History Tobacco Use Smoking status: Never Smokeless tobacco: Never Substance Use Topics Alcohol use: Never MIGNON Monterroso 07/22/25 1644 Cosigned by Giovanna Chavis MD at 07/25/2025 5:02 PM EDT Associated attestation - Giovanna Chavis MD - 07/25/2025 5:02 PM EDT I personally saw the patient and performed a substantive portion of the visit including all aspectsof the medical decision-making. I reviewed the AP's or resident's findings, supervised the management of the patient, made/approved the management plan and take responsibility for the patient management. Further, I agree with the controlled substance prescriptions(s) and/or order(s) as written by the AP, if any. My note reflects my personal findings on my history and exam. Please see my note as well documented in this encounter Miscellaneous Notes * ED Update - Jason Rogers MD - 07/22/2025 4:51 PM EDT ED UPDATE: 4:09 PM Received s/o from MD Chavis: Abscess on the hard palate, pending dental evaluation * ED Front end provider - Carlos Carreon PA-C - 07/22/2025 10:23 AM EDT Clinical Impression: Suspicious palate lesion. HPI: 44 yo F reports pain to palate of mouth. Symptoms x 3 days. +tobacco Reports poor PO. +subjective fevers. Vital signs reviewed Constitutional:Mental status alert and appropriate ENT:Patient speaking in normal voice, handling secretions without problems. + Lesion noted to the hard palate of the mouth. MDM: Medical Records Testing or Treatment considered but not performed: Additional testing and/or treatment considered but not performed in FEP area, will defer to patient's primary ED provider. documented in this encounter Plan of Treatment Pending Results Name Type Priority Associated Diagnoses Date /Time Blood Culture Microbiology STAT 1:11 PM EDT documented as of this encounter Procedures Procedure Name Priority Date/Time Associated Diagnosis Comments LACTIC ACID, PLASMA Timed 07/22/2025 2 :50 PM EDT XR PANOREX STAT 07/22/2025 2:22 PM EDT POCT GLUCOSE, FINGERSTICK (CHARGE) Routine 07/22/2025 2:02 PM EDT BLOOD CULTURE (HOSP LAB) STAT 07/22/2025 1:11 PM EDT LACTIC ACID, PLASMA Timed 07/22/2025 1 :[address] SINUSES W/CONTRAST STAT 07/22/2025 12:55 PM EDT POCT , URINE (CHARGE) STAT 07/22/2025 12:10 PM EDT COMPLETE BLOOD COUNT, WITH DIFFERENTIAL STAT 07/22/2025 10:37 AM EDT BASIC METABOLIC PANEL STAT 07/22/2025 10:37 AM EDT documented in this encounter Results * Lactic Acid, Q2h X 2 (07/22/2025 2:50 PM EDT) Lactic Acid 0.7 0.5 - 1.9 mmol/L 07/22/2025 3:41 PM EDT [facility] Blood Blood specimen / Unknown 07/22/2025 2:50 PM EDT 07/22/2025 3:19 PM EDT Annamaria Sesar CROW LAB BLOOD ORDERABLES Final Result [address] [address], [facility] [address] [place] [address] * XR Panorex (07/22/2025 2:22 PM EDT) Anatomical Region Laterality Modality Face Computed Radiogr aphy 07/22/2025 1:54 PM EDT Impressions 07/22/2025 3:05 PM EDT Again noted is periapical lucencies involving the maxillary right central and lateral incisors, this is better characterized same day CT sinus. Interpreted by: Rory Kelsey DO Laser Operator I personally reviewed the images and the resident's preliminary report and AGREE with the report as it is now presented ([email or web address]). Narrative 07/22/2025 3:05 PM EDT EXAMINATION: Panorex radiograph of the maxillofacial bones. CLINICAL INFORMATION: hard palate abscess on right side - dental involvement?; COMPARISON: CT sinus from same day. TECHNIQUE: Panorex radiograph of the maxilla and mandible was obtained. FINDINGS: No evidence of mandibular or maxillary fracture. The mandibular condyles appear well-seated within their respective temporal articular grooves. Periapical lucencies involving the maxillary right central and lateral incisors, better characterized on same day CT sinus. No abnormal opacification of the visualized paranasal sinuses. The visualized dentition demonstrates no abnormal foci to suggest erosions or dental caries. Procedure Note Nadya Ellis MD - 07/22/2025 EXAMINATION: Panorex radiograph of the maxillofacial bones. CLINICAL INFORMATION: hard palate abscess on right side - dental involvement?; COMPARISON: CT sinus from same day. TECHNIQUE: Panorex radiograph of the maxilla and mandible was obtained. FINDINGS: No evidence of mandibular or maxillary fracture. The mandibular condyles appear well-seated within their respective temporal articular grooves. Periapical lucencies involving the maxillary right central and lateral incisors, better characterized on same day CT sinus. No abnormal opacification of the visualized paranasal sinuses. The visualized dentition demonstrates no abnormal foci to suggest erosions or dental caries. IMPRESSION: Again noted is periapical lucencies involving the maxillary right central and lateral incisors, this is better characterized same day CT sinus. Interpreted by: Rory Kelsey DO Laser Operator I personally reviewed the images and the resident's preliminary report and AGREE with the report as it is now presented ([email or web address]). Annamaria CROW IMG DIAGNOSTIC IMAGING ORD ERABLES Final Result * POCT Glucose, Fingerstick (07/22/2025 2:02 PM EDT) POC Glucose 93 65 - 99 mg/dL 07/22/2025 2:02 PM EDT Blood specimen / Unknown 07/22/2025 2:02 PM EDT 07/22/2025 2:03 PM EDT Giovanna Chavis MD POINT OF CARE TEST ORDE ANNEMARIE Final Result HOSPITAL LAB See Below * Lactic Acid, Q2h X 2 (07/22/2025 1:10 PM EDT) Lactic Acid 1.1 0.5 - 1.9 mmol/L 07/22/2025 2:35 PM EDT [facility] Blood Blood specimen / Unknown 07/22/2025 1:10 PM EDT 07/22/2025 1:46 PM EDT Annamaria CROW LAB BLOOD ORDERABLES Final Result [address] [address], [address] [address] * CT Sinuses w/contrast (07/22/2025 12:55 PM EDT) Anatomical Region Laterality Modality Face Computed Tomogra phy 07/22/2025 12:4 7 PM EDT Impressions 07/22/2025 1:44 PM EDT Periapical lucency involving the right maxillary lateral incisor with partial extension into the adjacent right central incisor and right canine periapical regions compatible with periapical abscess or periapical cyst. Adjacent fluid collection extending into the roof of the mouth measuring 1.3 x 1 cm concerning for abscess. Adjacent upper lip soft tissue swelling. Additional periapical lucencies involving left maxillary molar teeth and multiple dental caries. Narrative 07/22/2025 1:[address] SINUSES W/CONTRAST HISTORY: patient with abscess on roof of mouth with low grade fever and right sided sinus pain. COMPARISON: None TECHNIQUE: Serial axial images of the maxillofacial region obtained following intravenous administration of IV contrast. Images were reformatted and reviewed in coronal and sagittal planes. This exam was performed according to the departmental dose-optimization program which includes automated exposure control, adjustment of the mA and/or kV according to patient size and/or use of iterative reconstruction technique. FINDINGS: Periapical lucency involving the right maxillary lateral incisor with partial extension into the adjacent right central incisor and right canine periapical regions compatible with periapical abscess or periapical cyst. Adjacent fluid collection extending into the roof of the mouth measuring 1.3 x 1 cm concerning for abscess. Adjacent upper lip soft tissue swelling. Additional periapical lucencies involving left maxillary molar teeth and multiple dental caries. Minimal mucosal thickening of the paranasal sinuses. There is no evidence of acute fracture. No abnormality of the orbits or globes are identified. The mandible and temporomandibular joints are intact. Procedure Note Fco Jimenez MD - 07/22/2025 CT SINUSES W/CONTRAST HISTORY: patient with abscess on roof of mouth with low grade fever and right sided sinus pain. COMPARISON: None TECHNIQUE: Serial axial images of the maxillofacial region obtained following intravenous administration of IV contrast. Images were reformatted and reviewed in coronal and sagittal planes. This exam was performed according to the departmental dose-optimization program which includes automated exposure control, adjustment of the mA and/or kV according to patient size and/or use of iterative reconstruction technique. FINDINGS: Periapical lucency involving the right maxillary lateral incisor with partial extension into the adjacent right central incisor and right canine periapical regions compatible with periapical abscess or periapical cyst. Adjacent fluid collection extending into the roof of the mouth measuring 1.3 x 1 cm concerning for abscess. Adjacent upper lip soft tissue swelling. Additional periapical lucencies involving left maxillary molar teeth and multiple dental caries. Minimal mucosal thickening of the paranasal sinuses. There is no evidence of acute fracture. No abnormality of the orbits or globes are identified. The mandible and temporomandibular joints are intact. IMPRESSION: Periapical lucency involving the right maxillary lateral incisor with partial extension into the adjacent right central incisor and right canine periapical regions compatible with periapical abscess or periapical cyst. Adjacent fluid collection extending into the roof of the mouth measuring 1.3 x 1 cm concerning for abscess. Adjacent upper lip soft tissue swelling. Additional periapical lucencies involving left maxillary molar teeth and multiple dental caries. Annamaria CROW IMG CT ORDERABLES Final Re sult * POCT , Urine (07/22/2025 12:10 PM EDT) Preg Test, Ur Negative Lot Number [id number] Ic Engineer Pass 07/22/2025 12:1 0 PM EDT Carlos Carreon PA-C POINT OF CARE TEST ORDERABLE S Final Result * (ABNORMAL) Basic Metabolic Panel (07/22/2025 10:37 AM EDT) Glucose 121(H) 65 - 99 mg/dL 07/22/2025 12:01 PM [facility] Comment:Fasting: <100 mg/dL, Non-Fasting: <200 mg/dL (ADA 2005) Blood Urea Nitrogen (BUN) 13 8 - 21 mg/dL 07/22/2025 12:01 PM [facility] Creatinine 0.88 0.40 - 1.10 mg/dL 07/22/2025 12:01 PM [facility] eGFR 84 >59 07/22/2025 12:01 PM [facility] Comment:CKD-EPI (2020) in mL /min/1.73 sq meters. Sodium 135(L) 136 - 145 mmol/L 07/22/2025 12:01 PM [facility] Potassium 4.2 3.4 - 5.3 mmol/L 07/22/2025 12:01 PM EDT [facility] Chloride 100 98 - 107 mmol/L 07/22/2025 12:01 PM [facility] CO2 23 22 - 33 mmol/L 07/22/2025 12:01 PM [facility] Anion Gap 12 7 - 17 07/22/2025 12:01 PM [facility] Calcium 9.0 8.7 - 10.5 mg/dL 07/22/2025 12:01 PM [facility] BUN/Creatinine Ratio 15 10.0 - 25.0 Ratio 07/22/2025 12:01 PM T [facility] Blood Blood specimen / Unknown 07/22/2025 10:37 AM EDT 07/22/2025 11:21 AM EDT Carlos Carreon PA-C LAB BLOOD ORDERABLES [place] [address], [address] [address] * Complete Blood Count, with Differential (07/22/2025 10:37 AM EDT) White Blood Cell Count 9.1 4.0 - 11.0 Thou/uL 07/22/2025 11:30 AM [facility] Platelet Count 353 150 - 450 Thou/uL 07/22/2025 11:30 AM [facility] Hemoglobin 14.5 11.7 - 15.7 g/dL 07/22/2025 11:30 AM [facility] Hematocrit 44.7 35.0 - 47.0 % 07/22/2025 11:30 AM [facility] Red Blood Cell Count 5.29 4.00 - 5.40 Mil/uL 07/22/2025 11:30 AM [facility] MCV 85 80 - 100 fL 07/22/2025 11:30 AM [facility] MCH 27.4 26.0 - 34.0 pg 07/22/2025 11:30 AM [facility] MCHC 32.4 30.0 - 36.0 g/dL 07/22/2025 11:30 AM [facility] RDW 14.3 11.5 - 14.5 % 07/22/2025 11:30 AM [facility] MPV 9.7 7.5 - 12.5 fL 07/22/2025 11:30 AM [facility] Neutrophils Auto 55.3 % 07/22/20 11:30 AM [facility] Immature Granulocytes 0.3 % 07/22/2025 11:30 AM [facility] Lymphocytes Auto 34.6 % 07/22/20 11:30 AM [facility] Monocytes Auto 8.4 % 07/22/2025 11:30 AM [facility] Eosinophils Auto 0.4 % 07/22/20 11:30 AM [facility] Basophils Auto 1.0 % 07/22/2025 11:30 AM [facility] Abs Neutrophils Auto 5.02 2.00 - 7.50 Thou/uL 07/22[facility] 11:[facility] Immature Granulocytes 0.03 0.00 - 0.10 Thou/uL 07/22/2025 11:30 AM EDT [facility] Abs Lymphocytes Auto 3.14 1.50 - 4.50 Thou/uL 07/22/2025 11:[facility] Abs Monocytes Auto 0.76 0.20 - 1.50 Thou/uL 07/22/2025 11:30 AM [facility] Abs Eosinophils Auto 0.04 0.00 - 0.70 Thou/uL 07/22/2025 11:[facility] Basophils Auto 0.09 0.00 - 0.20 Thou/uL 07/22/2025 11:30 AM [facility] Blood Blood specimen / Unknown 07/22/2025 10:37 AM EDT 07/22/2025 11:21 AM EDT Carlos Carreon PA-C LAB BLOOD ORDERABLES Final R esult [address] [address], [address] [address] documented in this encounter Visit Diagnoses Diagnosis Dental abscess- Primary Periapical abscess without sinus documented in this encounter Administered Medications Inactive Administered Medications - up to 1 most recent administrations Medication Order MAR Action Action Date Dose Rate Site sodium chloride 0.9 % (NS) bolus 1,000 mL, Intravenous, Administer over 2 Hours, Once, On Mon07/22/25 at 1203, For 1 dose New Bag 07/22/2025 12:39 PM EDT 1,000 mL 500 mL/hr acetaminophen (OFIRMEV) injection 1,000 mg 1,000 mg, Intravenous, at 400 mL/hr, Once, On Mon07/22/25 at 1203, For 1 dose New Bag 07/22/2025 12:39 PM EDT 1,000 mg 400 mL/hr iohexol (OMNIPAQUE) 350 mg/mL injection 80 mL 80 mL, Intravenous, Once in imaging, contrast, Starting on Mon07/22/25 at 1255, For 1 dose, Radiology Appointment Given 07/22/2025 12:55 PM EDT 80 mL ketorolac (TORADOL) injection 15 mg 15 mg, Intravenous, Once, On Mon07/22/25 at 1647, For 1 dose, If ordered IV Push: administer undiluted over 2 minutes. Given 07/22/2025 4:50 PM EDT 15 mg ondansetron (ZOFRAN) injection 4 mg 4 mg, Intravenous, Once, On Mon07/22/25 at 1647, For 1 dose Given 07/22/2025 4:49 PM EDT 4 mg documented in this encounter Active and Recently Administered Medications Times are shown in EDT. Scheduled Medication Order 07/20/2025 07/21/2025 07/22/2025 sodium chloride 0.9 % (NS) bolus (COMPLETED) 1,000 mL, Intravenous, Administer over 2 Hours, Once, On Mon07/22/25 at 1203, For 1 dose 1239 (New Bag - Prov ider: Maria Paez RN)1439 (Stopped - Provider: Hafsa Izaguirre RN) acetaminophen (OFIRMEV) injection 1,000 mg (COMPLETED) 1,000 mg, Intravenous, at 400 mL/hr, Once, On Mon07/22/25 at 1203, For 1 dose 1239 (New Bag - Prov ider: Maria Paez RN)1254 (Stopped - Provider: Hafsa Izaguirre RN) ketorolac (TORADOL) injection 15 mg (COMPLETED) 15 mg, Intravenous, Once, On Mon07/22/25 at 1647, For 1 dose, If ordered IV Push: administer undiluted over 2 minutes. 1650 (Given - Provid er: Gudelia Blake RN) ondansetron (ZOFRAN) injection 4 mg (COMPLETED) 4 mg, Intravenous, Once, On Mon07/22/25 at 1647, For 1 dose 1649 (Given - Provid er: Gudelia Blake RN) PRN Medication Order 07/20/2025 07/21/2025 07/22/2025 iohexol (OMNIPAQUE) 350 mg/mL injection 80 mL (COMPLETED) 80 mL, Intravenous, Once in imaging, contrast, Starting on Mon07/22/25 at 1255, For 1 dose, Radiology Appointment 1255 (Given - Provid er: RT Marco Antonio) documented in this encounter Care Teams Skill Training Program Coordinator Relationship Specialty Start Date End Date Pcp, No PCP - General General Medicine 06/22/25 documented as of this encounter
--- NOTE | 2025-07-26 | ECG_ITS ---
Test Reason : FALL Blood Pressure : */* mmHG Vent. Rate : 82 BPM Atrial Rate : 82 BPM P-R Int : 136 ms QRS Dur : 92 ms QT Int : 390 ms P-R-T Axes : 27 16 -1 degrees QTcB Int : 455 ms Normal sinus rhythm Nonspecific T wave abnormality Abnormal ECG When compared with ECG of 12-Mar-2023 05:44, No significant change was found Referred By: Generic ED Physician Electronically Signed By: Wilmar Grady
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
--- NOTE | ~2025-07-26 | XR_ITS ---
CLINICAL HISTORY: Tenderness Pain; Limited ROM 4 view right shoulder Comparison: None provided Findings: Bones intact. No dislocations. No significant arthritic change. No erosions. No radiopaque foreign body. IMPRESSION: 1. No acute findings This document has been electronically signed by: Brent Haley MD on 07/27/2025 04:34:05
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
[2025-07-26 22:35] VITALS: BP 148/92; PULSE 97; O2SAT 98
[2025-07-26 22:53] VITALS: BMI 36.2
[2025-07-26 22:59] VITALS: BP 123/72; PULSE 85; RESP 16; TEMP 36.7; O2SAT 96
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
[2025-07-26 23:29] LABS: MANUAL DIFF FLAG NO
[2025-07-26 23:30] LABS: Hematocrit 44.2 % (37.0-47.0); Hemoglobin 14.4 g/dl (12.0-16.0); Imm Gran Abs Auto 0.01 X10*3/uL (0.00-0.03); Imm Gran Pct Auto 0.2 % (0.0-0.4); Lymphocytes Absolute Auto 2.4 X10*3/uL (1.2-4.9); Mean Corpuscular HGB Conc 32.6 g/dl (31.0-35.0); Mean Corpuscular Hemoglobin 27.0 pg (27.0-33.0); Mean Corpuscular Volume 82.8 fL (80.0-98.0); NRBC Abs Auto 0.000 X10*3/uL (0.0-0.012); NRBC Pct Auto 0.0 /100WBC (0.0-0.2); Platelet Count 302 X10*3/uL (160-400); Red Blood Count 5.34 X10*6/uL (4.20-5.50); White Blood Count 5.8 X10*3/uL (4.8-10.8)
[2025-07-26 23:47] LABS: Alanine Aminotransferase 33 U/L (0-31); Albumin Level 4.3 g/dL (3.5-5.0); Alkaline Phosphatase 75 U/L (39-117); Anion Gap 15 (12-20); Aspartate Amino Transferase 22 U/L (5-31); Blood Urea Nitrogen 10 mg/dL (9-16); Calcium 9.0 mg/dL (8.4-10.2); Carbon Dioxide 21 mmol/L (22-29); Chloride 107 mmol/L (96-108); Creatinine Clr Calc Pharmacy 94.5; Estimated Glomerular Filt Rate > 60; Potassium 3.7 mmol/L (3.3-5.1); Sodium 139 mmol/L (135-145); Total Protein 7.5 g/dL (6.5-8.0)
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
--- OUTSIDE RECORDS SUMMARY | 2025-07-27 01:04 | XMS_ITS | Clinical Summary ---
Author Organization [facility] Address [address] [place] [address] Care Team Providers Care Supervisor [employer] Name Role Phone Pcp, No Primary Care Provider Unavailabl e Allergies Active Allergy Reactions Criticality Noted Date Comments Metoclopramide Rash/Dermatitis Low 07/12/2024 Medications amoxicillin-cla vulanate (AUGMENTIN) 875-125 MG per tablet Take 1 tablet by mouth 2 (two) times a day. Take as directed or until you run out 14 tablet 5 07/29/20 25 Active amoxicillin-cla vulanate (AUGMENTIN) 875-125 MG per tablet Take 1 tablet by mouth 2 (two) times a day. Take as directed or until you run out 14 tablet 06/29/20 25 Encounters Date Type Department Care Team Description 07/22/2025 10:24 AM EDT - 07/22/2025 5:36 PM EDT Emergency [facility] Emergency Department [address] [place], [place] [phone] Giovanna Chavis MD She, Trent T, MD Dental abscess (Primary Dx) Discharge Disposition: Home or Self Care 07/22/2025 Travel 06/22/2025 11:48 AM EDT - 06/22/2025 12:39 PM EDT [facility] Emergency Department [address] [place], [place] [phone] Ear pain (Primary Dx) Discharge Disposition: Home or Self Care 06/22/2025 Travel from Last 3 Months Social History Tobacco Use Types Packs/Day Years Used Date Smoking Tobacco: Never Smokeless Tobacco: Never Tobacco Cessation:Counseling Given: Not Answered Alcohol Use Standard Drinks/Week Comments Never 0 (1 standard drink = 0.6 oz pur e alcohol) Comments Unknown Sex and Gender Information Value Date Recorded Sex Assigned at Female 07/12/2024 6:05 PM EDT Legal Sex Female 5:13 PM EDT Gender Identity Female 07/12/2024 6:05 PM EDT Sexual Orientation Choose not to disclose 2023 6:05 PM EDT Last Filed Vital Signs Vital Sign Reading Time Taken Comments Blood Pressure 137/77 07/22/2025 4:54 PM EDT Pulse 67 07/22/2025 4:54 PM EDT Temperature 36.4 C (97.6 F) 07/22/2025 4:54 PM EDT Respiratory Rate 16 07/22/2025 4:54 PM EDT Oxygen Saturation 96% 07/22/2025 4:54 PM EDT Inhaled Oxygen Concentration - - Weight - - Height - - Body Mass Index - - Plan of Treatment Health Maintenance Due Date Last Done Comments Hepatitis C Virus Screening 1982 HIV Screening 1995 DTaP/Tdap/Td Vaccines (1 - Tdap) 2001 Hepatitis B Vaccines (1 of 3 - 19+ 3-dose series) 2001 Pap Smear (Ages 21-65) 2003 Mammogram 2022 Influenza Vaccine 05/09/2025 COVID-19 Vaccine ( - 2023-2 5 season) 2025 HPV Vaccines (No Doses Required) Completed Pneumococcal Vaccine: Pediat joaquín (0-5 Years) and At-Risk Patients (6 to 49 Years) Aged Out No longer eligible b ased on patient's age to complete this topic Procedures Procedure Name Priority Date/Time Associated Diagnosis [...] URINE (CHARGE) STAT 07/22/2025 12:10 PM EDT BASIC METABOLIC PANEL STAT 07/22/2025 10:37 AM EDT COMPLETE BLOOD COUNT, WITH DIFFERENTIAL STAT 07/22/2025 10:37 AM EDT from Last 3 Months Results * Lactic Acid, Q2h X 2 (07/22/2025 2:50 PM EDT) Only the most recent of2 resultswithin the time period is included. Lactic Acid 0.7 0.5 - 1.9 mmol/L 07/22/2025 3:41 PM EDT [facility] Blood Blood specimen / Unknown 07/22/2025 2:50 PM EDT 07/22/2025 3:19 PM EDT Annamaria CROW LAB BLOOD ORDERABLES Final Result Performing Organization Address City/State/[facility] Co de Phone Number [address] [address], [address] [address] * XR Panorex (07/22/2025 2:22 PM EDT) Anatomical Region Laterality Modality Face Computed Radiogr aphy 07/22/2025 1:54 PM EDT Impressions 07/22/2025 3:05 PM EDT Again noted is periapical lucencies involving the maxillary right central and lateral incisors, this is better characterized same day CT sinus. Interpreted by: Rory Kelsey DO Front Office Specialist I personally reviewed the images and the [...] CT sinus. Interpreted by: Rory Kelsey DO Front Office Specialist I personally reviewed the images and the resident's preliminary report and AGREE with the report as it is now presented ([id number]). Annamaria CROW IMG DIAGNOSTIC IMAGING ORD ERABLES Final Result * POCT Glucose, Fingerstick (07/22/2025 2:02 PM EDT) POC Glucose 93 65 - 99 mg/dL 07/22/2025 2:02 PM EDT Blood specimen / Unknown 07/22/2025 2:02 PM EDT 07/22/2025 2:03 PM EDT us Giovanna Chavis MD POINT OF CARE TEST ORDE ANNEMARIE Final Result HOSPITAL LAB See Below * CT Sinuses w/contrast (07/22/2025 12:55 PM [...] teeth and multiple dental caries. Annamaria CROW IMEly CT ORDERABLES Final Re sult * POCT , Urine (07/22/2025 12:10 PM EDT) [facility] Preg Test, Ur Negative Lot Number [id number] [employer] 07/22/2025 12:1 0 PM EDT Carlos Carreon PA-C POINT OF CARE TEST ORDERABLE S Final Result * Complete Blood Count, with Differential (07/22/2025 10:37 AM EDT) [facility] White Blood Cell Count 9.1 4.0 - 11.0 Thou/uL 07/22/2025 11:30 AM [facility] Platelet Count 353 150 - 450 Thou/uL 07/22/2025 11:30 AM [facility] Hemoglobin 14.5 11.7 - 15.7 g/dL 07/22/2025 11:30 AM [facility] Hematocrit 44.7 35.0 - 47.0 % 07/22/2025 11:30 AM [facility] Red Blood Cell Count 5.29 4.00 - 5.40 Mil/uL 07/22/2025 11:30 AM [facility] MCV 85 80 - 100 fL 07/22/2025 11:30 AM [facility] MCH 27.4 26.0 - 34.0 pg 07/22/2025 11:30 AM [facility] MCHC 32.4 30.0 - 36.0 g/dL 07/22/2025 11:30 AM [facility] RDW 14.3 11.5 - 14.5 % 07/22/2025 11:30 AM [facility] MPV 9.7 7.5 - 12.5 fL 07/22/2025 11:30 AM [facility] Neutrophils Auto 55.3 % 07/22/20 11:30 AM [facility] Immature Granulocytes 0.3 % 07/22/2025 11:30 AM [facility] Lymphocytes Auto 34.6 % 07/22/20 11:30 AM [facility] Monocytes Auto 8.4 % 07/22/2025 11:30 AM [facility] Eosinophils Auto 0.4 % 07/22/20 11:30 AM [facility] Basophils Auto 1.0 % 07/22/2025 11:30 AM [facility] Abs Neutrophils Auto 5.02 2.00 - 7.50 Thou/uL 07/22/2025 11:30 AM [facility] Abs Immature Granulocytes 0.03 0.00 - 0.10 Thou/uL 07/22/2025 11:30 AM [facility] Abs Lymphocytes Auto 3.14 1.50 - 4.50 Thou/uL 07/22/2025 11:30 AM [facility] Abs Monocytes Auto 0.76 0.20 - 1.50 Thou/uL 07/22/2025 11:30 AM [facility] Abs Eosinophils Auto 0.04 0.00 - 0.70 Thou/uL 07/22/2025 11:30 AM [facility] Abs Basophils Auto 0.09 0.00 - 0.20 Thou/uL 07/22/2025 11:30 AM [facility] Blood Blood specimen / Unknown 07/22/2025 10:37 AM EDT 07/22/2025 11:21 AM EDT Carlos Carreon PA-C LAB BLOOD ORDERABLES Final R esult [address] [address], [address] [address] * (ABNORMAL) Basic Metabolic Panel (07/22/2025 10:37 AM EDT) Glucose 121(H) 65 - 99 mg/dL 07/22/2025 12:01 PM T [facility] Comment:Fasting: <100 mg/dL, Non-Fasting: <200 mg/dL (ADA 2004) Blood Urea Nitrogen (BUN) 13 8 - 21 mg/dL 07/22/2025 12:01 PM [facility] Creatinine 0.88 0.40 - 1.10 mg/dL 07/22/2025 12:01 PM [facility] eGFR 84 >59 07/22/2025 12:01 PM [facility] Comment:CKD-EPI (2020) in mL /min/1.73 sq meters. Sodium 135(L) 136 - 145 mmol/L 07/22/2025 12:01 PM [facility] Potassium 4.2 3.4 - 5.3 mmol/L 07/22/2025 12:01 PM [facility] Chloride 100 98 - 107 mmol/L 07/22/2025 12:01 PM [facility] CO2 23 22 - 33 mmol/L 07/22/2025 12:01 PM [facility] Anion Gap 12 7 - 17 07/22/2025 12:01 PM [facility] Calcium 9.0 8.7 - 10.5 mg/dL 07/22/2025 12:01 PM [facility] BUN/Creatinine Ratio 15 10.0 - 25.0 Ratio 07/22/2025 12:01 PM [facility] Blood Blood specimen / Unknown 07/22/2025 10:37 AM EDT 07/22/2025 11:21 AM EDT Carlos Carreon PA-C LAB BLOOD ORDERABLES Final R esult [address] [address], [facility] [address] [place] [address] from Last 3 Months Insurance [facility] Care Teams Supervisor [employer] Relationship Specialty Start Date End Date Pcp, No PCP - General General Medicine 06/22/25
--- OUTSIDE RECORDS SUMMARY | 2025-07-27 01:04 | XMS_ITS ---
Author Name [facility] Organization Unknown Results Test Name/Text Value Interpretation Date Range Source Lactate SerPl-sCnc 0.7 mmol/L 07/22/2025 0.5 - 1.9 [facility] POC Glucose 93.0 mg/dL 07/22/2025 65 - 99 [facility] Lactate SerPl-sCnc 1.1 mmol/L 07/22/2025 0.5 - 1.9 [facility] Potassium SerPl-sCnc 4.2 mmol/L 07/22/2025 3.4 - 5 .3 [facility] Glucose SerPl-mCnc 121.0 mg/dL Above high normal 07/22/2025 65 - 99 [facility] Calcium SerPl-mCnc 9.0 mg/dL 07/22/2025 8.7 - 10.5 [facility] CO2 SerPl-sCnc 23.0 mmol/L 07/22/2025 22 - 33 HH CCT GFR/BSA.pred SerPlBld MTX-[id number]-ClVFkg 84.0 07/22/2025 59 - [facility] BUN SerPl-mCnc 13.0 mg/dL 07/22/2025 8 - [address] Chloride SerPl-sCnc 100.0 mmol/L 07/22/2025 98 - 1 07 [facility] Sodium SerPl-sCnc 135.0 mmol/L Below low normal 07/22/2025 1 36 - 145 [facility] Anion Gap Bld-sCnc 12.0 07/22/2025 7 - 17 [facility] Creat SerPl-mCnc 0.88 mg/dL 07/22/2025 0.4 - 1.1 H HCCT BUN/Creat SerPl 15.0 Ratio 07/22/2025 10 - 25 HH CCT Neutrophils num Bld Auto 5.02 Thou/uL 07/22/2025 2 - 7.5 [facility] Neutrophils/leuk NFr Bld Auto 55.3 % 07/22/2025 [facility] Imm Granulocytes/leuk NFr Bld Auto 0.3 % 07/22/2025 [facility] Platelet num Bld Auto 353.0 Thou/uL 07/22/2025 150 - 450 [facility] Hgb Bld-mCnc 14.5 g/dL 07/22/2025 11.7 - 15.7 HHCC T MCV RBC Auto 85.0 fL 07/22/2025 80 - 100 [facility] PMV Bld Auto 9.7 fL 07/22/2025 7.5 - 12.5 [facility] Lymphocytes/leuk NFr Bld Auto 34.6 % 07/22/2025 [facility] Monocytes num Bld Auto 0.76 Thou/uL 07/22/2025 0.2 - 1.5 [facility] Lymphocytes num Bld Auto 3.14 Thou/uL 07/22/2025 1.5 - 4.5 [facility] Imm Granulocytes num Bld Auto 0.03 Thou/uL 07/22/2025 0 - 0.1 [facility] WBC num Bld Auto 9.1 Thou/uL 07/22/2025 4 - 11 [facility] Hct VFr Bld Auto 44.7 % 07/22/2025 35 - 47 HH CCT Eosinophil/leuk NFr Bld Auto 0.4 % 07/22/2025 [facility] MCHC RBC Auto-mCnc 32.4 g/dL 07/22/2025 30 - 36 [facility] Basophils/leuk NFr Bld Auto 1.0 % 07/22/2025 [facility] Basophils num Bld Auto 0.09 Thou/uL 07/22/2025 0 - 0.2 [facility] Monocytes/leuk NFr Bld Auto 8.4 % 07/22/2025 [facility] Eosinophil num Bld Auto 0.04 Thou/uL 07/22/2025 0 - 0.7 [facility] RBC num Bld Auto 5.29 Mil/uL 07/22/2025 4 - 5.4 [facility] RDW RBC Auto-Rto 14.3 % 07/22/2025 11.5 - 14.5 [facility] MCH RBC Qn Auto 27.4 pg 07/22/2025 26 - [address] Encounters Encounter Type Encounter Reason Primary Diagnosis Location Date Emergency Periapical abscess without sinus Periapical abscess without sinus [facility] 07/22/2025 Emergency Otalgia, unspecified ear Otalgia, unspecified ear [facility] 06/22/2025 Emergency sob dizziness Flu Symptoms [facility] 11/12/2024 Emergency Other specified disorders of teeth and supporting structures Other specified disorders of teeth and supporting structures [facility] 07/12/2024 Care Team Organization Name Specialty Phone Email Start Date End Da te [facility] PCP [facility] 07/22/2025 [facility] NO PCP Primary Care 06/22/[address] [facility] 09/[address] [facility] 01/2025 [facility] 07/13/2024 [facility] 07/12/2024 [facility] ([facility]) 2023 [facility] 12/23/2023
--- OUTSIDE RECORDS SUMMARY | 2025-07-27 01:04 | XMS_ITS | Clinical Summary ---
Author Organization [facility] Address [address] [place] [address] Care Team Providers Care Nurse Chemical Dependency Name Role Phone Unavailable Primary Care Provider Unavailabl e Social History Tobacco Use Types Packs/Day Years Used Date Smoking Tobacco: Never Assessed Sex and Gender Information Value Date Recorded Sex Assigned at Not on file Gender Identity Not on file Sexual Orientation Not on file Plan of Treatment Not on file
--- OUTSIDE RECORDS SUMMARY | 2025-07-27 01:04 | XMS_ITS | Encounter Summary ---
Author Organization [facility] Address [address] [place] [address] Care Team Providers Care Line Installer Repairer Name Role Phone Pcp, No Primary Care Provider Unavailabl e Encounter Details Date Type Department Care Team (Latest Contact Info) Description 07/22/2025 Travel Social History Tobacco Use Types Packs/Day Years [...] PM EDT documented as of this encounter Plan of Treatment Not on file documented as of this encounter Visit Diagnoses Not on filedocumented in this encounter Care Teams Line Installer Repairer Relationship Specialty Start Date End Date Pcp, No PCP - General General Medicine 06/22/25 documented as of this encounter
--- NOTE | 2025-07-27 01:40 | PC.NURSE ---
attempted IV line x2, unable , pt states usually ultrasound guided. will advise CT once IV is in place. provider advised.
--- NOTE | 2025-07-27 02:53 | PC.NURSE ---
ultrasound guided IV in place, CT scan advised.
[2025-07-27] MEDS: iohexoL 350 MG/ML 100 ML INFUS..BTL IV (03:10)
[2025-07-27 05:24] VITALS: BP 120/80; PULSE 80; RESP 16; TEMP 36.8; O2SAT 97
== END 2025-07-27 05:26 | disposition home or self-care (01) ==
PROVIDERS: Emergency Provider Student in an Organized Health Care Education/Training Program
DX: S40.011A Contusion of right shoulder, initial encounter (principal); S13.4XXA Sprain of ligaments of cervical spine, initial encounter; V47.6XXA Car passenger injured in collision with fixed or stationary object in traffic accident, initial encounter; Y93.89 Activity, other specified; Y92.488 Other paved roadways as the place of occurrence of the external cause; Y99.8 Other external cause status
CPT/HCPCS: 36415; 70450; 71260; 72125; 73030; 74177; 80053; 85025; 93005; 96374; 99285; J2270; Q9967

== ENCOUNTER → 2025-07-26 23:10 | Outpatient (BNV) | payer SELFPAY | PROVIDERS: Emergency Provider Student in an Organized Health Care Education/Training Program; Visit Provider Internal Medicine Cardiovascular Disease | DX: R94.31 Abnormal electrocardiogram [ECG] [EKG] (principal); W19.XXXA Unspecified fall, initial encounter | CPT/HCPCS: 93010 ==

== ENCOUNTER → 2025-07-26 23:33 | Outpatient (BNV) | payer SELFPAY | PROVIDERS: Emergency Provider Student in an Organized Health Care Education/Training Program; Visit Provider Specialist | DX: M25.511 Pain in right shoulder (principal) | CPT/HCPCS: 73030 ==

== ENCOUNTER → 2025-07-27 00:06 | Outpatient (BNV) | payer SELFPAY | PROVIDERS: Emergency Provider Student in an Organized Health Care Education/Training Program; Visit Provider Specialist | DX: R10.813 Right lower quadrant abdominal tenderness (principal); M25.552 Pain in left hip; R07.9 Chest pain, unspecified; M54.2 Cervicalgia; S09.90XA Unspecified injury of head, initial encounter; R51.9 Headache, unspecified; V89.2XXA Person injured in unspecified motor-vehicle accident, traffic, initial encounter | CPT/HCPCS: 70450; 71260; 72125; 74177 ==